=== PATIENT | male | born 1975 | race Caucasian/White ===

== ENCOUNTER 2016-09-05 14:56 | Emergency (ER) | payer BC ==
--- NOTE | 2016-09-05 16:04 | ER Document Report ---
ED Medical Screen (RME) - General Stated Complaint: ABDOMINAL PAIN,VOMITING Time seen by provider: 16:02 Mode of Arrival: Ambulatory Information source: Patient Notes: 41-year-old male presents to ED for possible food poisoning with abdominal pain generalized. Denies any nausea vomiting or diarrhea. I have greeted and performed a rapid initial assessment of this patient. A comprehensive ED assessment and evaluation of the patient, analysis of test results and completion of medical decision making process will be conducted by an additional ED providers. Physical Exam - Vital signs Vitals: Temp Pulse Resp BP Pulse Ox 98 F 96 18 147/88 H 99 09/05/16 15:58 09/05/16 15:58 09/05/16 15:58 09/05/16 15:58 09/05/16 15:58 Course - Vital Signs Vital signs: Temp Pulse Resp BP Pulse Ox 98 F 96 18 147/88 H 99 09/05/16 15:58 09/05/16 15:58 09/05/16 15:58 09/05/16 15:58 09/05/16 15:58
[2016-09-05 16:37] LABS: ABSOLUTE BASOPHILS # (AUTO) 0.1 10^3/uL (0.0-0.2); ABSOLUTE EOSINOPHILS # (AUTO) 0.3 10^3/uL (0.0-0.6); ABSOLUTE LYMPHOCYTES (AUTO) 1.8 10^3/uL (0.5-4.7); ABSOLUTE MONOCYTES (AUTO) 0.4 10^3/uL (0.1-1.4); ABSOLUTE NEUT (AUTO) 4.6 10^3/uL (1.7-8.2); BASOPHILS % (AUTO) 1.3 % (0-2); EOSINOPHILS % (AUTO) 4.7 % (0-6); HEMATOCRIT 42.9 % (37.9-51.0); HEMOGLOBIN 14.8 g/dL (13.5-17.0); HGB HCT DIFFERENCE 1.5; LYMPHOCYTES % (AUTO) 24.5 % (13-45); MEAN CORPUSCULAR HEMOGLOBIN 29.7 pg (27.0-33.4); MEAN CORPUSCULAR HGB CONC 34.6 g/dL (32.0-36.0); MEAN CORPUSCULAR VOLUME 86 fl (80-97); MONOCYTES % (AUTO) 5.7 % (3-13); RED CELL DISTRIBUTION WIDTH 13.4 % (11.5-14.0); SEGMENTED NEUTROPHILS % (AUTO) 63.8 % (42-78); WHITE BLOOD COUNT 7.2 10^3/uL (4.0-10.5)
[2016-09-05 16:42] LABS: APPEARANCE,URINE SLIGHTLY-CLOUDY; BILIRUBIN,URINE NEGATIVE (NEGATIVE); GLUCOSE, URINE NEGATIVE (NEGATIVE); KETONES,URINE NEGATIVE (NEGATIVE); LEUKOCYTE ESTERASE,URINE SMALL (NEGATIVE); NITRITE,URINE NEGATIVE (NEGATIVE); PROTEIN,URINE NEGATIVE (NEGATIVE); URINE SPECIFIC GRAVITY 1.017; UROBILINOGEN,URINE NEGATIVE mg/dL (<2.0)
[2016-09-05 16:55] LABS: ALANINE AMINOTRANSFERASE 63 U/L (21-72); ALBUMIN 4.3 g/dL (3.5-5.0); ALKALINE PHOSPHATASE 103 U/L (38-126); ANION GAP 14 (5-19); ASPARTATE AMINO TRANSFERASE 31 U/L (17-59); BILIRUBIN,DIRECT 0.3 mg/dL (0.0-0.4); BILIRUBIN,TOTAL 0.5 mg/dL (0.2-1.3); BLOOD UREA NITROGEN 14 mg/dL (7-20); CALCIUM 9.3 mg/dL (8.4-10.2); CARBON DIOXIDE 25 mmol/L (22-30); CHLORIDE 104 mmol/L (98-107); CREATININE RESULT 0.93 mg/dL (0.52-1.25); GLUCOSE 144 mg/dL (75-110); LIPASE 45.2 U/L (23-300); POTASSIUM 3.6 mmol/L (3.6-5.0)
[2016-09-05] MEDS ORDERED: CIPROFLOXACIN HCL 500 MG TABLET PO ONE (20:39)
--- NOTE | 2016-09-05 20:43 | ER Document Report ---
ED GI/ - General Chief Complaint: Abdominal Pain Stated Complaint: ABDOMINAL PAIN,VOMITING Mode of Arrival: Ambulatory Notes: Patient is a 41-year-old male that comes emergency department for chief complaint of abdominal cramping, a few episodes of loose stools, and intermittent waves of nausea. Symptoms started last night after dinner. Patient denies any vomiting, fever, denies any current abdominal pain, states he has had no blood in his stools. Patient reports past medical history of kidney stones years ago, denies any flank pain, states this does not feel like kidney stone. He denies any dysuria or urinary symptoms. He denies any abdominal surgeries. TRAVEL OUTSIDE OF THE [place] IN LAST 30 DAYS: No - Related Data Allergies/Adverse Reactions: erythromycin base Allergy (Verified 09/05/16 16:02) Past Medical History - General Information source: Patient - Social History Smoking Status: Never Smoker Chew tobacco use (# tins/day): No Frequency of alcohol use: None Drug Abuse: None Lives with: Family Family History: Reviewed & Not Pertinent Patient has suicidal ideation: No Patient has homicidal ideation: No Renal/ Medical History: Reports: Hx Kidney Stones. Denies: Hx Peritoneal Dialysis Surgical Hx: Negative - Immunizations Hx Diphtheria, Pertussis, Tetanus Vaccination: Yes Review of Systems - Review of Systems Constitutional: No symptoms reported EENT: No symptoms reported Cardiovascular: No symptoms reported Respiratory: No symptoms reported Gastrointestinal: See HPI Genitourinary: No symptoms reported Male Genitourinary: No symptoms reported Musculoskeletal: No symptoms reported Skin: No symptoms reported Hematologic/Lymphatic: No symptoms reported Neurological/Psychological: No symptoms reported Physical Exam - Vital signs Vitals: Temp Pulse Resp BP Pulse Ox 98 F 96 18 147/88 H 99 09/05/16 15:58 09/05/16 15:58 09/05/16 15:58 09/05/16 15:58 09/05/16 15:58 Interpretation: Normal - General General appearance: Appears well, Alert In distress: None - Alert and well-appearing - HEENT Head: Normocephalic, Atraumatic Eyes: Normal Conjunctiva: Normal Extraocular movements intact: Yes Eyelashes: Normal Pupils: PERRL Nasal: Normal Mouth/Lips: Normal Mucous membranes: Normal Pharynx: Normal Neck: Normal - Respiratory Respiratory status: No respiratory distress Chest status: Nontender Breath sounds: Normal Chest palpation: Normal - Cardiovascular Rhythm: Regular. No: Tachycardia Heart sounds: Normal auscultation, S1 appreciated, S2 appreciated Murmur: No - Abdominal Inspection: Normal Distension: No distension Bowel sounds: Normal Tenderness: Nontender. No: Tender, Guarding Organomegaly: No organomegaly - Back Back: Normal, Nontender - Extremities General upper extremity: Normal inspection, Nontender, Normal color, Normal ROM , Normal temperature General lower extremity: Normal inspection, Nontender, Normal color, Normal ROM , Normal temperature, Normal weight bearing. No: Ari's sign - Neurological Neuro grossly intact: Yes Cognition: Normal Orientation: AAOx4 [place] Coma Scale Eye Opening: Spontaneous [place] Coma Scale Verbal: Oriented [place] Coma Scale Motor: Obeys Commands [place] Coma Scale Total: 15 Speech: Normal Motor strength normal: LUE, RUE, LLE, RLE Sensory: Normal - Psychological Associated symptoms: Normal affect, Normal mood - Skin Skin Temperature: Warm Skin Moisture: Dry Skin Color: Normal Course - Re-evaluation Re-evalutation: 09/05/16 20:41 Patient states he is unable to give me a stool sample. Belly is soft and benign. Vital signs unremarkable. Patient declines nausea medication, states he feels improved. CBC, chemistry generally unremarkable, urinalysis shows leukocyte esterase and white blood cells with no bacteria or nitrites. Because of diarrhea, leukocytes in the urine, after discussion with patient urine culture will be placed and patient will be placed on Cipro. Discussed primary care follow-up and return precautions. Patient states understanding and agreement. - Vital Signs Vital signs: Temp Pulse Resp BP Pulse Ox 98.1 F 87 15 134/90 H 97 09/05/16 20:56 09/05/16 20:56 09/05/16 20:56 09/05/16 20:56 09/05/16 20:56 - Laboratory Result Diagrams: 09/05/16 16:23 09/05/16 16:23 Laboratory results interpreted by me: 09/05/16 09/05/16 16:23 16:23 Glucose 144 H Ur Leukocyte Esterase SMALL H Discharge - Discharge Clinical Impression: Nausea Abdominal pain Qualifiers: Abdominal location: generalized Qualified Code(s): R10.84 - Generalized abdominal pain Diarrhea Qualifiers: Diarrhea type: unspecified type Qualified Code(s): R19.7 - Diarrhea, unspecified Condition: Stable Disposition: HOME, SELF-CARE Additional Instructions: Your examination and workup indicating most likely a viral source of her symptoms, however your urinalysis is uncertain, take the Cipro antibiotic as directed, drink plenty of fluids, rest. We have a urine culture growing in our lab. Follow-up with primary care. Return to the emergency department for any concerning worsening symptoms including vomiting, fever, severe abdominal pain, etc. Prescriptions: Ciprofloxacin HCl [Cipro 500 mg Tablet] 500 mg PO BID #10 tablet Forms: Return to Work Referrals: CHANDA STOKES MD [Primary Care Provider] - Follow up as needed
[2016-09-06 03:27] VITALS: BP 134/90
== END 2016-09-05 20:56 | disposition home or self-care (01) ==
LOC: ER 14:56
DX: R11.0 Nausea (principal); R10.84 Generalized abdominal pain; R19.7 Diarrhea, unspecified; Z87.442 Personal history of urinary calculi; Z88.3 Allergy status to other anti-infective agents
CPT/HCPCS: 36415; 80053; 81001; 83690; 85025; 99284

== ENCOUNTER 2017-03-06 08:19 | Emergency (ER) | payer BC ==
[2017-03-06] MEDS ORDERED: KETOROLAC TROMETHAMINE INJ/PF 30 MG/1 ML SDV IV ONE (09:15)
--- NOTE | 2017-03-06 09:16 | ER Document Report ---
ED GI/ - General Chief Complaint: Flank Pain Stated Complaint: BACK PAIN Time Seen by Provider: 03/06/17 08:47 Mode of Arrival: Ambulatory Information source: Patient Notes: Patient presents complaining of low back pain that started at 2 AM today. Patient denies any injury. Patient denies any abdominal pain, urinary symptoms , or fever. Patient denies any nausea, vomiting or diarrhea. Patient denies any radiculopathy or paresthesia. Patient does report previous history of kidney stones and is concerned about that today. TRAVEL OUTSIDE OF THE [place] IN LAST 30 DAYS: No - HPI Patient complains to provider of: Other - Low back pain. No: Abdominal pain, Dysuria, Hematuria, Testicular pain Onset: This morning Timing/Duration: Gradual Quality of pain: Achy Pain Level: 1 Location: Other - Low back pain Associated symptoms: denies: Diarrhea, Dysuria, Fever, Loss of appetite, Nausea , Urinary hesitancy, Urinary frequency, Urinary retention, Urinary urgency, Vomiting Exacerbated by: Denies Relieved by: Denies Similar symptoms previously: Yes Recently seen / treated by doctor: No - Related Data Allergies/Adverse Reactions: erythromycin base Allergy (Verified 03/06/17 09:20) Past Medical History - General Information source: Patient - Social History Smoking Status: Never Smoker Frequency of alcohol use: None Drug Abuse: None 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 Denies: Hx Peritoneal Dialysis Malignancy Medical History: Reports Other - Hodgkin's disease Psychiatric Medical History: Reports: Hx Depression Past Surgical History: Reports: Other - Port-A-Cath - Immunizations Hx Diphtheria, Pertussis, Tetanus Vaccination: Yes Review of Systems - Review of Systems Constitutional: No symptoms reported. denies: Fever, Recent illness EENT: No symptoms reported Cardiovascular: No symptoms reported Respiratory: No symptoms reported. denies: Cough, Short of breath Gastrointestinal: No symptoms reported. denies: Abdominal pain, Diarrhea, Nausea, Vomiting Genitourinary: No symptoms reported. denies: Dysuria, Flank pain Male Genitourinary: No symptoms reported Musculoskeletal: Back pain Skin: No symptoms reported Hematologic/Lymphatic: No symptoms reported Neurological/Psychological: No symptoms reported Physical Exam - Vital signs Vitals: Temp Pulse Resp BP Pulse Ox 98.0 F 96 18 132/91 H 98 03/06/17 08:30 03/06/17 08:30 03/06/17 08:30 03/06/17 08:30 03/06/17 08:30 - General General appearance: Appears well, Alert In distress: None - Respiratory Respiratory status: No respiratory distress Chest status: Nontender Breath sounds: Normal. No: Rales, Rhonchi, Stridor, Wheezing Chest palpation: Normal - Cardiovascular Rhythm: Regular Heart sounds: S1 appreciated, S2 appreciated Murmur: No - Abdominal Inspection: Obese Distension: No distension Bowel sounds: Normal Tenderness: Nontender Organomegaly: No organomegaly - Back Back: Tender - Lower lumbar paraspinal tenderness, no midline tenderness. No: Deformity/step-off, CVA tenderness, Vertebra tenderness - Extremities General upper extremity: Normal inspection, Normal ROM General lower extremity: Normal inspection, Normal ROM - Neurological Neuro grossly intact: Yes Cognition: Normal Orientation: AAOx4 [place] Coma Scale Eye Opening: Spontaneous [place] Coma Scale Verbal: Oriented [place] Coma Scale Motor: Obeys Commands C[place] Coma Scale Total: 15 - Psychological Associated symptoms: Normal affect, Normal mood - Skin Skin Temperature: Warm Skin Moisture: Dry Skin Color: Normal Course - Re-evaluation Re-evalutation: 03/06/17 Patient with no abdominal tenderness or flank pain. Patient's pain is bilateral lower lumbar paraspinal tenderness. The patient presents with low back pain without signs of spinal cord compression, cauda equina syndrome, infection, aneurysm, or other serious etiology. The patient is neurologically intact. Given the extremely risk of these diagnoses further testing and evaluation for these possibilities does not appear to be indicated at this time. Patient has been instructed to return if the symptoms worsen or change in any way. - Vital Signs Vital signs: Temp Pulse Resp BP Pulse Ox 98.1 F 98 18 135/95 H 99 03/06/17 11:14 03/06/17 11:14 03/06/17 11:14 03/06/17 11:14 03/06/17 11:14 - Laboratory Result Diagrams: 03/06/17 09:16 03/06/17 09:16 Laboratory results interpreted by me: 03/06/17 03/06/17 08:50 09:16 Glucose 123 H Ur Leukocyte Esterase TRACE H Labs- Entire Visit 03/06/17 03/06/17 03/06/17 08:50 09:16 09:16 WBC 7.4 RBC 5.04 Hgb 15.1 Hct 43.4 MCV 86 MCH 29.9 MCHC 34.8 RDW 13.2 Plt Count 215 Seg Neutrophils % 69.5 Lymphocytes % 21.0 Monocytes % 3.9 Eosinophils % 4.3 Basophils % 1.3 Absolute Neutrophils 5.2 Absolute Lymphocytes 1.6 Absolute Monocytes 0.3 Absolute Eosinophils 0.3 Absolute Basophils 0.1 Sodium 140.9 Potassium 4.1 Chloride 103 Carbon Dioxide 29 Anion Gap 9 BUN 14 Creatinine 0.96 Est GFR ( Amer) > 60 Est GFR (Non-Af Amer) > 60 Glucose 123 H Calcium 9.3 Total Bilirubin 0.5 Direct Bilirubin 0.3 Indirect Bilirubin Not Reportable Neonat Total Bilirubin Not Reportable AST 31 ALT 63 Alkaline Phosphatase 119 Total Protein 7.0 Albumin 4.2 Lipase 60.3 Urine Color YELLOW Urine Appearance CLEAR Urine pH 6.0 Ur Specific [place] 1.016 Urine Protein NEGATIVE Urine Glucose (UA) NEGATIVE Urine Ketones NEGATIVE Urine Blood NEGATIVE Urine Nitrite NEGATIVE Urine Bilirubin NEGATIVE Urine Urobilinogen NEGATIVE Ur Leukocyte Esterase TRACE H Urine WBC (Auto) 8 Urine RBC (Auto) 4 Squamous Epi Cells Auto <1 Urine Mucus (Auto) OCC Urine Ascorbic Acid NEGATIVE Discharge - Discharge Clinical Impression: Low back pain Qualifiers: Chronicity: unspecified Back pain laterality: bilateral Sciatica presence: without sciatica Qualified Code(s): M54.5 - Low back pain Condition: Stable Disposition: HOME, SELF-CARE Instructions: Ciprofloxacin ([facility]), Low Back Pain ([facility]), Oral Narcotic Medication ([facility]), Urinary Tract Infection ([facility]) Additional Instructions: Return immediately for any new or worsening symptoms Followup with your primary care provider, call tomorrow to make a followup appointment urine culture is pending, we will call if you need any different treatment Prescriptions: Ciprofloxacin HCl [Cipro 500 mg Tablet] 500 mg PO BID #14 tablet Oxycodone HCl/Acetaminophen [Percocet 5-325 mg Tablet] 1 - 2 tab PO ASDIR PRN # 15 tablet PRN Reason: Forms: Return to Work Referrals: [facility] [Provider Group] - Follow up tomorrow
[2017-03-06 09:38] LABS: ABSOLUTE BASOPHILS # (AUTO) 0.1 10^3/uL (0.0-0.2); ABSOLUTE EOSINOPHILS # (AUTO) 0.3 10^3/uL (0.0-0.6); ABSOLUTE LYMPHOCYTES (AUTO) 1.6 10^3/uL (0.5-4.7); ABSOLUTE MONOCYTES (AUTO) 0.3 10^3/uL (0.1-1.4); ABSOLUTE NEUT (AUTO) 5.2 10^3/uL (1.7-8.2); BASOPHILS % (AUTO) 1.3 % (0-2); EOSINOPHILS % (AUTO) 4.3 % (0-6); HEMATOCRIT 43.4 % (37.9-51.0); HEMOGLOBIN 15.1 g/dL (13.5-17.0); HGB HCT DIFFERENCE 1.9; MEAN CORPUSCULAR HEMOGLOBIN 29.9 pg (27.0-33.4); MEAN CORPUSCULAR HGB CONC 34.8 g/dL (32.0-36.0); MEAN CORPUSCULAR VOLUME 86 fl (80-97); MONOCYTES % (AUTO) 3.9 % (3-13); RED BLOOD COUNT 5.04 10^6/uL (4.35-5.55); RED CELL DISTRIBUTION WIDTH 13.2 % (11.5-14.0); SEGMENTED NEUTROPHILS % (AUTO) 69.5 % (42-78); WHITE BLOOD COUNT 7.4 10^3/uL (4.0-10.5)
[2017-03-06 10:00] LABS: APPEARANCE,URINE CLEAR; BILIRUBIN,URINE NEGATIVE (NEGATIVE); GLUCOSE, URINE NEGATIVE (NEGATIVE); KETONES,URINE NEGATIVE (NEGATIVE); LEUKOCYTE ESTERASE,URINE TRACE (NEGATIVE); NITRITE,URINE NEGATIVE (NEGATIVE); PROTEIN,URINE NEGATIVE (NEGATIVE); URINE SPECIFIC GRAVITY 1.016; UROBILINOGEN,URINE NEGATIVE mg/dL (<2.0)
[2017-03-06 10:23] LABS: ALANINE AMINOTRANSFERASE 63 U/L (21-72); ALBUMIN 4.2 g/dL (3.5-5.0); ALKALINE PHOSPHATASE 119 U/L (38-126); ANION GAP 9 (5-19); ASPARTATE AMINO TRANSFERASE 31 U/L (17-59); BILIRUBIN,DIRECT 0.3 mg/dL (0.0-0.4); BILIRUBIN,TOTAL 0.5 mg/dL (0.2-1.3); BLOOD UREA NITROGEN 14 mg/dL (7-20); CALCIUM 9.3 mg/dL (8.4-10.2); CARBON DIOXIDE 29 mmol/L (22-30); CHLORIDE 103 mmol/L (98-107); CREATININE RESULT 0.96 mg/dL (0.52-1.25); GLUCOSE 123 mg/dL (75-110); LIPASE 60.3 U/L (23-300); POTASSIUM 4.1 mmol/L (3.6-5.0); SODIUM 140.9 mmol/L (137-145)
[2017-03-06] MEDS ORDERED: CIPROFLOXACIN HCL 500 MG TABLET PO ONE (10:59)
[2017-03-06 11:18] VITALS: BP 135/95
== END 2017-03-06 11:17 | disposition home or self-care (01) ==
LOC: ER 08:19
DX: M54.5 Low back pain (principal); Z87.442 Personal history of urinary calculi; Z88.1 Allergy status to other antibiotic agents
CPT/HCPCS: 99284; 96374; 36415; 87086; 83690; 85025; 80053; 81001; J1885

== ENCOUNTER 2017-04-05 06:22 | Emergency (ER) | payer BC ==
--- NOTE | 2017-04-05 07:08 | ER Document Report ---
ED General - General Chief Complaint: Flank Pain Stated Complaint: PELVIC PAIN Time Seen by Provider: 04/05/17 06:40 TRAVEL OUTSIDE OF THE [place] IN LAST 30 DAYS: No - HPI Patient complains to provider of: flank pain Notes: Patient coming in for left-sided flank pain ongoing for the last 4824 hours. Patient states slight nausea. Patient states difficulty in urinating however no direct dysuria. Patient states recently has prostate check by his PCP no enlargement. Patient denies any other past medical history. Patient sitting comfortably reading is [employer]. Patient is concerned that he may have urinary tract infection states he does have a history of urinary tract infections in the past. Patient states he is currently not sexually active. Denies any fevers chills vomiting diarrhea - Related Data Allergies/Adverse Reactions: erythromycin base Allergy (Verified 03/06/17 09:20) Home Medications: Current Home Medications Buspirone HCl [Buspar 30 mg Tablet] 30 mg PO DAILY 04/05/17 [History] Iron 1 tab PO DAILY 04/05/17 [History] Levothyroxine Sodium [Synthroid] 137 mcg PO DAILY 04/05/17 [History] Paroxetine HCl [Paxil 20 mg Tablet] 20 mg PO DAILY 04/05/17 [History] Past Medical History - Social History Smoking Status: Never Smoker Chew tobacco use (# tins/day): No Frequency of alcohol use: None Drug Abuse: None Family History: Reviewed & Not Pertinent Patient has suicidal ideation: No Patient has homicidal ideation: No Endocrine Medical History: Reports: Hx Hypothyroidism Renal/ Medical History: Reports: Hx Kidney Stones. Denies: Hx Peritoneal Dialysis Psychiatric Medical History: Reports: Hx Depression Past Surgical History: Reports: Hx Vascular Surgery - port a cath, Other - Port- A-Cath - Immunizations Hx Diphtheria, Pertussis, Tetanus Vaccination: Yes Review of Systems - Review of Systems Constitutional: No symptoms reported EENT: No symptoms reported Cardiovascular: No symptoms reported Respiratory: No symptoms reported Gastrointestinal: No symptoms reported Genitourinary: Flank pain Male Genitourinary: No symptoms reported Musculoskeletal: No symptoms reported Skin: No symptoms reported Hematologic/Lymphatic: No symptoms reported Neurological/Psychological: No symptoms reported -: Yes All other systems reviewed and negative Physical Exam - Vital signs Vitals: Temp Pulse Resp BP Pulse Ox 97.6 F 88 16 119/87 H 97 04/05/17 06:27 04/05/17 06:27 04/05/17 06:27 04/05/17 06:27 04/05/17 06:27 Interpretation: Normal - General General appearance: Appears well, Alert - HEENT Head: Normocephalic, Atraumatic Eyes: Normal Pupils: PERRL - Respiratory Respiratory status: No respiratory distress Chest status: Nontender Breath sounds: Normal Chest palpation: Normal - Cardiovascular Rhythm: Regular Heart sounds: Normal auscultation Murmur: No - Abdominal Inspection: Normal Distension: No distension Bowel sounds: Normal Tenderness: Nontender Organomegaly: No organomegaly - Back Back: Normal, CVA tenderness - Slight CVA tenderness on the left - Extremities General upper extremity: Normal inspection, Nontender, Normal color, Normal ROM , Normal temperature General lower extremity: Normal inspection, Nontender, Normal color, Normal ROM , Normal temperature, Normal weight bearing. No: Ari's sign - Neurological Neuro grossly intact: Yes Cognition: Normal Orientation: AAOx4 [place] Coma Scale Eye Opening: Spontaneous [place] Coma Scale Verbal: Oriented [place] Coma Scale Motor: Obeys Commands [place] Coma Scale Total: 15 Speech: Normal Motor strength normal: LUE, RUE, LLE, RLE Sensory: Normal - Psychological Associated symptoms: Normal affect, Normal mood - Skin Skin Temperature: Warm Skin Moisture: Dry Skin Color: Normal Course - Re-evaluation Re-evalutation: 04/05/17 08:25 Urinalysis does not show any signs of infection does show hematuria are consistent with possible passage of a kidney stone. Discussed this possible etiology with the patient did offer CT scan however at this time I explained the patient would not change treatment options. Patient agrees declined CT patient will be given Flomax oxycodone for pain control Zofran educated about use Tylenol Motrin for pain control as well recommend follow-up with his PCP in 1 week. Patient states understanding. - Vital Signs Vital signs: Temp Pulse Resp BP Pulse Ox 97.6 F 88 16 119/87 H 97 04/05/17 06:27 04/05/17 06:27 04/05/17 06:27 04/05/17 06:27 04/05/17 06:27 - Laboratory Laboratory results interpreted by me: 04/05/17 07:07 Urine Protein 30 H Urine Blood LARGE H Ur Leukocyte Esterase TRACE H Discharge - Discharge Clinical Impression: Flank pain, Hematuria Instructions: Flank Pain ([facility]), Kidney Stone ([facility]), Hematuria ([facility]), Oral Narcotic Medication ([facility]) Additional Instructions: Your examination today and urinalysis is consistent with more likely a kidney stone. We will treat your kidney stone pain control and nausea control. He may take Flomax as directed. You do not need Flomax to passed a kidney stone. Please return immediately if you develop a fever. Follow-up with your primary care physician in 1 week. You can also take Tylenol and Motrin for your pain control. Prescriptions: Ondansetron HCl [Zofran 4 mg Tablet] 1 - 2 tab PO Q4H PRN #30 tablet PRN Reason: Oxycodone HCl 5 mg PO Q6 #30 tablet Tamsulosin HCl [Flomax 0.4 mg Cap.sr] 0.4 mg PO DAILY #7 cap.sr.24h Referrals: CHANDA STOKES MD [Primary Care Provider] - Follow up in 1 week
[2017-04-05 07:50] LABS: APPEARANCE,URINE SLIGHTLY-CLOUDY; BILIRUBIN,URINE NEGATIVE (NEGATIVE); GLUCOSE, URINE NEGATIVE (NEGATIVE); KETONES,URINE NEGATIVE (NEGATIVE); LEUKOCYTE ESTERASE,URINE TRACE (NEGATIVE); NITRITE,URINE NEGATIVE (NEGATIVE); PROTEIN,URINE 30 mg/dL (NEGATIVE); URINE SPECIFIC GRAVITY 1.016; UROBILINOGEN,URINE NEGATIVE mg/dL (<2.0)
[2017-04-05] MEDS ORDERED: ONDANSETRON ODT 4 MG TAB (6 TAB/ER DISP) PO PRN (08:28)
[2017-04-05] MEDS ORDERED: TAMSULOSIN HCL 0.4 MG CAP.SR.24H PO ONE (08:28)
[2017-04-05 09:05] VITALS: BP 141/91
== END 2017-04-05 09:05 | disposition home or self-care (01) ==
LOC: ER 06:22
DX: R31.9 Hematuria, unspecified (principal); R10.9 Unspecified abdominal pain; R10.2 Pelvic and perineal pain; R11.0 Nausea; Z79.899 Other long term (current) drug therapy
CPT/HCPCS: 81001; 99284

== ENCOUNTER 2017-10-26 07:27 | Emergency (ER) | payer BC ==
[2017-10-26 07:31] VITALS: BP 146/92
--- NOTE | 2017-10-26 08:00 | ER Document Report ---
ED General - General Chief Complaint: Fever Stated Complaint: FEVER Time Seen by Provider: 10/26/17 07:37 Mode of Arrival: Ambulatory Information source: Patient Notes: 42-year-old male presents with complaints of mild body aches chills sweats. Patient was concerned he was having fever. 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 IN LAST 30 DAYS: No - HPI Onset: Just prior to arrival Onset/Duration: Sudden Quality of pain: Achy Severity: Mild Pain Level: Denies Associated symptoms: Body/muscle aches, Chills, Sweating Exacerbated by: Denies Relieved by: Denies Similar symptoms previously: No Recently seen / treated by doctor: No - Related Data Allergies/Adverse Reactions: erythromycin base Allergy (Verified 10/26/17 07:34) Past Medical History - Social History Smoking Status: Never Smoker Cigarette use (# per day): No Chew tobacco use (# tins/day): No Smoking Education Provided: No Frequency of alcohol use: None Drug Abuse: None Family History: Reviewed & Not Pertinent Patient has suicidal ideation: No Patient has homicidal ideation: No Endocrine Medical History: Reports: Hx Hypothyroidism Renal/ Medical History: Reports: Hx Kidney Stones. Denies: Hx Peritoneal Dialysis Psychiatric Medical History: Reports: Hx Depression Past Surgical History: Reports: Hx Tonsillectomy, Hx Vascular Surgery - port a cath, Other - Port-A-Cath - Immunizations Hx Diphtheria, Pertussis, Tetanus Vaccination: Yes Review of Systems - Review of Systems Notes: REVIEW OF SYSTEMS: CONSTITUTIONAL : admits to chills ,sweating EENT: Denies eye, ear, throat, or mouth pain or symptoms. Denies nasal or sinus congestion or discharge. Denies throat, tongue, or mouth swelling or difficulty swallowing. CARDIOVASCULAR: Denies chest pain. Denies palpitations or racing or irregular heart beat. Denies ankle edema. RESPIRATORY: Denies cough, cold, or chest congestion. Denies shortness of breath, difficulty breathing, or wheezing. GASTROINTESTINAL: Denies abdominal pain or distention. Denies nausea, vomiting , or diarrhea. Denies blood in vomitus, stools, or per rectum. Denies black, tarry stools. Denies constipation. GENITOURINARY: Denies difficulty urinating, painful urination, burning, frequency, blood in urine, or discharge. MUSCULOSKELETAL: Denies back or neck pain or stiffness. Denies joint pain or swelling. SKIN: Denies rash, lesions or sores. HEMATOLOGIC : Denies easy bruising or bleeding. LYMPHATIC: Denies swollen, enlarged glands. NEUROLOGICAL: Denies confusion or altered mental status. Denies passing out or loss of consciousness. Denies dizziness or lightheadedness. Denies headache. Denies weakness or paralysis or loss of use of either side. Denies problems with gait or speech. Denies sensory loss, numbness, or tingling. Denies seizures. PSYCHIATRIC: Denies anxiety or stress. Denies depression, suicidal ideation, or homicidal ideation. ALL OTHER SYSTEMS REVIEWED AND NEGATIVE. Dictation was performed using [employer] voice recognition software PHYSICAL EXAMINATION: GENERAL: Well-appearing, well-nourished and in no acute distress. HEAD: Atraumatic, normocephalic. EYES: Pupils equal round and reactive to light, extraocular movements intact, sclera anicteric, conjunctiva are normal. ENT: Nares patent, oropharynx clear without exudates. Moist mucous membranes. NECK: Normal range of motion, supple without lymphadenopathy LUNGS: Breath sounds clear to auscultation bilaterally and equal. No wheezes rales or rhonchi. HEART: Regular rate and rhythm without murmurs ABDOMEN: Soft, nontender, nondistended abdomen. No guarding, no rebound. No masses appreciated. Musculoskeletal: Normal range of motion, no pitting or edema. No cyanosis. NEUROLOGICAL: Cranial nerves grossly intact. Normal speech, normal gait. Normal sensory, motor exams PSYCH: Normal mood, normal affect. SKIN: Warm, Dry, normal turgor, no rashes or lesions noted. Physical Exam - Vital signs Vitals: Temp Pulse Resp BP Pulse Ox 98.5 F 94 18 146/92 H 98 10/26/17 07:30 10/26/17 07:30 10/26/17 07:30 10/26/17 07:30 10/26/17 07:30 Course - Re-evaluation Re-evalutation: 10/26/17 07:59 Patient's examination is completely benign, he looks well is in no distress, patient may have been exposed to something well he works at [employer], however at this time there is no signs of any life-threatening issues his vital signs are stable he is afebrile looks well After performing a Medical Screening Examination, I estimate there is LOW risk for ACUTE CORONARY SYNDROME, PULMONARY EMBOLI, RESPIRATORY FAILURE, SEPSIS OR MENINGITIS, thus I consider the discharge disposition reasonable. I have reevaluated this patient multiple times and no significant life threatening changes are noted. The patient and I have discussed the diagnosis and risks, and we agree with discharging home with close follow-up. We also discussed returning to the Emergency Department immediately if new or worsening symptoms occur. We have discussed the symptoms which are most concerning (e.g., changing or worsening pain, trouble swallowing or breathing, neck stiffness, fever) that necessitate immediate return. - Vital Signs Vital signs: Temp Pulse Resp BP Pulse Ox 98.5 F 94 18 146/92 H 98 10/26/17 07:30 10/26/17 07:30 10/26/17 07:30 10/26/17 07:30 10/26/17 07:30 Discharge - Discharge Clinical Impression: Night sweats, Chills (without fever) Condition: Stable Disposition: HOME, SELF-CARE Instructions: Fever ([facility]) Forms: Return to Work Referrals: CHANDA STOKES MD [Primary Care Provider] - Follow up tomorrow
== END 2017-10-26 08:05 | disposition home or self-care (01) ==
LOC: ER 07:27
DX: R61 Generalized hyperhidrosis (principal); R68.83 Chills (without fever); M79.1 Myalgia; E03.9 Hypothyroidism, unspecified; Z87.442 Personal history of urinary calculi; Z88.3 Allergy status to other anti-infective agents
CPT/HCPCS: 99283

== ENCOUNTER 2018-10-17 00:16 | Emergency (ER) | payer BC ==
[2018-10-17] MEDS ORDERED: ASPIRIN 325 MG TABLET PO ONE (06:14)
--- NOTE | 2018-10-17 06:14 | ER Document Report ---
ED General - General Chief Complaint: Numbness of Arm Stated Complaint: LEFT SIDED NUMBNESS,DIFFICULTY BREATHING Time Seen by Provider: 10/17/18 06:08 Primary Care Provider: CLIFTON VARMA MD [NO LOCAL MD] - Follow up in 3-5 days Notes: Patient is a 43-year-old male presents with complaint of intermittent numbness into his left arm left leg. He says this has been intermittent for just over a year. He says in the last few days has become more frequent. He went to [facility] 2 days ago and was evaluated. He said they did a full cardiac work-up on him because at that time he was also found with a short of breath. His work- up there was negative including blood work and EKG and x-rays. Symptoms continue to be intermittent therefore he came to the ER here today. He says currently his symptoms have really resolved and is not having at this time. He denies ever having any weakness in his arm or leg. He denies ever having slurred speech or difficulty talking or walking. No other reported neurologic deficits. TRAVEL OUTSIDE OF THE [place] IN LAST 30 DAYS: No - Related Data Allergies/Adverse Reactions: erythromycin base Allergy (Verified 10/26/17 07:34) Past Medical History - Social History Smoking Status: Unknown if Ever Smoked Frequency of alcohol use: None Drug Abuse: None Family History: Reviewed & Not Pertinent Endocrine Medical History: Reports: Hx Hypothyroidism Renal/ Medical History: Reports: Hx Kidney Stones. Denies: Hx Peritoneal Dialysis Psychiatric Medical History: Reports: Hx Depression Past Surgical History: Reports: Hx Tonsillectomy, Hx Vascular Surgery - port a cath, Other - Port-A-Cath - Immunizations Hx Diphtheria, Pertussis, Tetanus Vaccination: Yes Review of Systems - Review of Systems Notes: My Normal Review Basic REVIEW OF SYSTEMS: CONSTITUTIONAL : Denies fever, chills, or sweats. Denies recent illness. EENT: Denies eye, ear, throat, or mouth pain or symptoms. Denies nasal or sinus congestion. CARDIOVASCULAR: Denies chest pain. RESPIRATORY: Some mild shortness of breath 2 days ago which has since resolved. GASTROINTESTINAL: Denies abdominal pain. Denies nausea, vomiting, or diarrhea. MUSCULOSKELETAL: Denies neck or back pain or joint pain or swelling. SKIN: Denies rash or skin lesions. HEMATOLOGIC : Denies easy bruising or bleeding. NEUROLOGICAL: Denies altered mental status or loss of consciousness. Denies headache. Denies weakness or paralysis or loss of use of either side. Denies problems with gait or speech. Numbness of left arm and left leg ALL OTHER SYSTEMS REVIEWED AND NEGATIVE. Physical Exam - Vital signs Vitals: Temp Pulse Resp BP Pulse Ox 98.1 F 81 20 132/83 H 97 10/17/18 00:54 10/17/18 00:54 10/17/18 00:54 10/17/18 00:54 10/17/18 00:54 - Notes Notes: General Appearance: Well nourished, alert, cooperative, no acute distress, no obvious discomfort. Well-appearing. Vitals: reviewed, See vital signs table. Head: no swelling or tenderness to the head Eyes: PERRL, EOMI, Conjuctiva clear Mouth: No decreasd moisture Throat: No tonsillar inflammation, No airway obstruction, No lymphadenopathy Neck: Supple, no neck tenderness, No thyromegaly Lungs: No wheezing, No rales, No rhonci, No accessory muscle use, good air exchange bilaterally. Heart: Normal rate, Regular rythm, No murmur, no rub Abdomen: Normal BS, soft, No rigidity, No abdominal tenderness, No guarding, no rebound, no abdominal masses, no organomegaly Extremities: strength 5/5 in all extremities, good pulses in all extremities, no swelling or tenderness in the extremities, no edema. Skin: warm, dry, appropriate color, no rash Neuro: speech clear, oriented x 3, normal affect, responds appropriately to questions. Cranial nerves II through XII are intact. Distal sensation intact. Patient moves all extremities without difficulty. Normal Romberg. Normal gait. Course - Re-evaluation Re-evalutation: 10/17/18 06:[address] scan just showed evidence of an old right basal ganglia infarct. Patient does mention that his symptoms have been intermittent for a year but became more frequent here recently. I told him that it still possible that this old infarct could be causing the intermittent numbness in his arm or leg however it be rare for him to have a intermittent in nature numbness such as this. He denies any speech issues. He denies any weakness into his legs. No weakness into his arms. He actually is not even having the numbness at this time I see her in the ER. I informed him because of his history of the previous stroke I recommend him starting aspirin. I said there is still possibility that his symptoms could also be being caused by a pinched nerve and therefore recommend him get an outpatient MRI of his neck. He said he would follow-up with primary care doctor in regards to this. He does not currently have a primary care doctor to 5 him a list of primary care doctors in the area and will also refer him to our local neurologist. I encouraged him to have a low threshold to return to ER if he has weakness in any of his extremities, worsening numbness, or any setting of his symptoms. Patient agrees with plan will be discharged home. Dictation of this chart was performed using voice recognition software; therefore, there may be some unintended grammatical errors. - Vital Signs Vital signs: Temp Pulse Resp BP Pulse Ox 98.1 F 81 20 132/83 H 97 10/17/18 00:54 10/17/18 00:54 10/17/18 00:54 10/17/18 00:54 10/17/18 00:54 Discharge - Discharge Clinical Impression: Numbness and tingling in left arm Condition: Good Disposition: HOME, SELF-CARE Instructions: Family Physicians / Practices Additional Instructions: Your CT scan shows evidence of an old stroke. I do not think this is causing your current symptoms. Anytime you have history of an old stroke he should take 81 mg aspirin every day. Please take the enteric-coated aspirin. You can buy this [id number]. Please follow-up with a neurologist, Dr. Varma, for reevaluation and further work-up. I will also give you a list of local primary care doctors. You should eventually get an MRI of your neck and head as there is a possibility that the numbness and tingling into your left arm and left leg could be related to pinched nerve in your neck. Please have a low threshold to return to ER if you have any weakness in your arm or leg, severe headache, or if you feel that you are worsening in any way. Forms: Return to Work Referrals: CLIFTON VARMA MD [NO LOCAL MD] - Follow up in 3-5 days
[2018-10-17 07:12] VITALS: BP 125/78
--- NOTE | 2018-10-17 08:31 | RADIOLOGY REPORT (SQ) ---
EXAM DESCRIPTION: CT HEAD WITHOUT COMPLETED DATE/TIME: 10/17/2018 6:19 am REASON FOR STUDY: HEADACHE COMPARISON: None. TECHNIQUE: Axial images acquired through the brain without intravenous contrast. Images reviewed wi th bone, brain and subdural windows. Additional sagittal and coronal reconstructions were generated. Images stored on PACS. All CT scanners at this facility use dose modulation, iterative reconstruction, and/or weight based d osing when appropriate to reduce radiation dose to as low as reasonably achievable (ALARA). [facility]: Dose Right [facility]: CareDose [facility]: Dose Right [facility]: Teradose 4D [facility]: [employer] Systems RADIATION DOSE: 1096 mGy cm LIMITATIONS: None. FINDINGS: VENTRICLES: Normal size and contour. CEREBRUM: No masses. No hemorrhage. No midline shift. No evidence for acute infarction. There is a lacunar infarction of the right basal ganglia. CEREBELLUM: No masses. No hemorrhage. No alteration of density. No evidence for acute infarction. EXTRAAXIAL SPACES: No fluid collections. No masses. ORBITS AND GLOBE: No intra- or extraconal masses. Normal contour of globe without masses. CALVARIUM: No fracture. PARANASAL SINUSES: No fluid or mucosal thickening. SOFT TISSUES: No mass or hematoma. OTHER: No other significant finding. IMPRESSION: No acute intracranial pathology. No noncontrast CT findings to explain headache. Lacun ar infarction of the right basal ganglia. EVIDENCE OF ACUTE STROKE: NO. COMMENT: Quality ID # [id number]: Final reports with documentation of one or more dose reduction techniques (e.g., Automated exposure control, adjustment of the mA and/or kV according to patient size, use of iterative reconstruction technique) TECHNICAL DOCUMENTATION: JOB ID: [id number] [employer]- All Rights Reserved Reading location - IP/workstation name: [email or web address]
--- NOTE | 2018-10-17 23:07 | EKG REPORT ---
SEVERITY:- ABNORMAL ECG - SINUS RHYTHM LEFT AXIS DEVIATION LEFT VENTRICULAR HYPERTROPHY : Confirmed by: Lucia Bianchi 17-Oct-2018 23:06:10
== END 2018-10-17 07:19 | disposition home or self-care (01) ==
LOC: ER 00:16
DX: R20.0 Anesthesia of skin (principal); M79.605 Pain in left leg; R06.02 Shortness of breath
CPT/HCPCS: 70450; 93005; 93010; 99284

== ENCOUNTER 2019-07-17 20:46 | Emergency (ER) | payer BC, OTHER ==
--- NOTE | 2019-07-17 23:11 | ER Document Report ---
ED Medical Screen (RME) - General Chief Complaint: Diarrhea Stated Complaint: DIARRHEA,HEADACHE Time Seen by Provider: 07/17/19 22:52 Notes: Patient is a 44-year-old male with a history of CVA, hypothyroidism who presents the emergency department with a chief complaint of diarrhea. Patient reports he has had 2 days of diarrhea and estimates having about 8-9 stools. He reports this is watery in nature. Patient denies vomiting. Patient denies blood in his stool. Patient denies recent out of country travel or sick contacts. Patient reports he is also had increased anxiety over the past few days. Patient does take buspirone as well as Paxil. Patient reports he did take his medication tonight which did seem to help with his discomfort. Patient states about 3 hours ago he developed some left arm/left leg heaviness some numbness. Patient reports this does happen intermittently since he was diagnosed with a stroke over 1 year ago. Patient reports he does have a neurologist in which he did see last year. Patient reports anytime he has symptoms he becomes concerned. Patient reports a slight headache. Patient does take a baby aspirin daily. Patient denies any other blood thinners. Patient denies fever. TRAVEL OUTSIDE OF THE [place] IN LAST 30 DAYS: No - Related Data Allergies/Adverse Reactions: erythromycin base Allergy (Verified 10/26/17 07:34) Past Medical History Endocrine Medical History: Reports: Hx Hypothyroidism Renal/ Medical History: Reports: Hx Kidney Stones. Denies: Hx Peritoneal Dialysis Psychiatric Medical History: Reports: Hx Depression Past Surgical History: Reports: Hx Tonsillectomy, Hx Vascular Surgery - port a cath, Other - Port-A-Cath - Immunizations Hx Diphtheria, Pertussis, Tetanus Vaccination: Yes Physical Exam - Vital signs Vitals: Temp Pulse Resp BP Pulse Ox 97.5 F 81 18 129/81 H 100 07/17/19 20:54 07/17/19 20:54 07/17/19 20:54 07/17/19 20:54 07/17/19 20:54 Interpretation: Normal - Neurological Neuro grossly intact: Yes Cognition: Normal Orientation: AAOx4 [place] Coma Scale Eye Opening: Spontaneous [place] Coma Scale Verbal: Oriented [place] Coma Scale Motor: Obeys Commands [place] Coma Scale Total: 15 Speech: Normal Cranial nerves: Normal Cerebellar coordination: Normal Motor strength normal: LUE, RUE, LLE, RLE - Normal strength noted in all extremities. 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 Patient once again reiterated that he does have intermittent numbness and tingling from his old stroke. Will obtain a CT of the head to rule out any acute intracranial abnormality as the patient also reports a slight headache. Patient's neurological exam was negative. Will obtain basic labs. Patient is not tachycardic, febrile or hypo-or hyper tensive at this time. Patient denies chest pain or shortness of breath. I have greeted and performed a rapid initial assessment of this patient. A comprehensive ED assessment and evaluation of the patient, analysis of test results and completion of the medical decision making process will be conducted by additional ED providers. - Vital Signs Vital signs: Temp Pulse Resp BP Pulse Ox 97.5 F 81 18 129/81 H 100 07/17/19 20:54 07/17/19 20:54 07/17/19 20:54 07/17/19 20:54 07/17/19 20:54
[2019-07-18] LABS: ABSOLUTE BASOPHILS # (AUTO) 0.1 10^3/uL (0.0-0.2); ABSOLUTE EOSINOPHILS # (AUTO) 0.1 10^3/uL (0.0-0.6); ABSOLUTE LYMPHOCYTES (AUTO) 1.2 10^3/uL (0.5-4.7); ABSOLUTE MONOCYTES (AUTO) 0.3 10^3/uL (0.1-1.4); ABSOLUTE NEUT (AUTO) 4.7 10^3/uL (1.7-8.2); BASOPHILS % (AUTO) 1.4 % (0-2); EOSINOPHILS % (AUTO) 1.7 % (0-6); HEMATOCRIT 46.2 % (37.9-51.0); HEMOGLOBIN 16.1 g/dL (13.5-17.0); LYMPHOCYTES % (AUTO) 18.7 % (13-45); MEAN CORPUSCULAR HEMOGLOBIN 29.6 pg (27.0-33.4); MEAN CORPUSCULAR HGB CONC 34.9 g/dL (32.0-36.0); MEAN CORPUSCULAR VOLUME 85 fl (80-97); MONOCYTES % (AUTO) 4.5 % (3-13); PLATELET COUNT 236 10^3/uL (150-450); RED BLOOD COUNT 5.45 10^6/uL (4.35-5.55); RED CELL DISTRIBUTION WIDTH 12.7 % (11.5-14.0); SEGMENTED NEUTROPHILS % (AUTO) 73.7 % (42-78); TOTAL CELLS COUNTED % (AUTO) 100 %; WHITE BLOOD COUNT 6.4 10^3/uL (4.0-10.5)
[2019-07-18 00:16] LABS: ALBUMIN 4.8 g/dL (3.5-5.0); ALKALINE PHOSPHATASE 92 U/L (38-126); ANION GAP 9 (5-19); ASPARTATE AMINO TRANSFERASE 26 U/L (17-59); BILIRUBIN,DIRECT 0.3 mg/dL (0.0-0.4); BILIRUBIN,TOTAL 0.5 mg/dL (0.2-1.3); BLOOD UREA NITROGEN 10 mg/dL (7-20); CALCIUM 9.9 mg/dL (8.4-10.2); CARBON DIOXIDE 30 mmol/L (22-30); CHLORIDE 102 mmol/L (98-107); GLUCOSE 117 mg/dL (75-110); POTASSIUM 4.3 mmol/L (3.6-5.0); TOTAL PROTEIN 8.1 g/dL (6.3-8.2)
--- NOTE | 2019-07-18 00:19 | ER Document Report ---
ED General - General Chief Complaint: Diarrhea Stated Complaint: DIARRHEA,HEADACHE Time Seen by Provider: 07/17/19 22:52 Mode of Arrival: Ambulatory Information source: Patient TRAVEL OUTSIDE OF THE [place] IN LAST 30 DAYS: No - HPI Onset: Other - over the last few days Onset/Duration: Gradual Quality of pain: Achy, Cramping Severity: Mild Pain Level: 1 Associated symptoms: Diarrhea, Weakness, Other - numbness, tingling Exacerbated by: Denies Relieved by: Denies Similar symptoms previously: Yes - patient has had the left sided numbness and tingling and weakness for years Recently seen / treated by doctor: No Notes: 44 year old male with a history of previous stroke (right basal ganglia area), Hypothyroidism, Anxiety, Depression here for 2 days of crampy abdominal pain and diarrhea and several hours of left sided numbness, tingling, and weakness. The patient says his mother has similar GI symptoms. The patient denies fevers, chills, sweats, nausea, vomiting, recent travel outside the [place], ingestion of uncooked foods. The patient has had off and on left sided numbness, tingling, and weakness for years now. The patient says it seems to go several times a week and he just wanted to be checked out for it today while in the ER. The patient has seen a neurologist in the past for this and he has imaging in this EMR which shows he did have a right basal ganglia stroke in the past. It has been thought his old stroke is the cause of his transient left sided symptoms. - Related Data Allergies/Adverse Reactions: erythromycin base Allergy (Verified 10/26/17 07:34) Past Medical History - General Information source: Patient - Social History Smoking Status: Former Smoker Frequency of alcohol use: None Drug Abuse: None Family History: Reviewed & Not Pertinent Patient has suicidal ideation: No Patient has homicidal ideation: No - Past Medical History Cardiac Medical History: Reports: None Pulmonary Medical History: Reports: None EENT Medical History: Reports: None Neurological Medical History: Reports: None, Hx Cerebrovascular Accident Endocrine Medical History: Reports: Hx Hypothyroidism Renal/ Medical History: Reports: Hx Kidney Stones. Denies: Hx Peritoneal Dialysis GI Medical History: Reports: None Psychiatric Medical History: Reports: Hx Depression Past Surgical History: Reports: Hx Tonsillectomy, Hx Vascular Surgery - port a cath, Other - Port-A-Cath - Immunizations Hx Diphtheria, Pertussis, Tetanus Vaccination: Yes Review of Systems - Review of Systems Constitutional: No symptoms reported EENT: No symptoms reported Cardiovascular: No symptoms reported Respiratory: No symptoms reported Gastrointestinal: Diarrhea Genitourinary: No symptoms reported Male Genitourinary: No symptoms reported Musculoskeletal: No symptoms reported Skin: No symptoms reported Hematologic/Lymphatic: No symptoms reported Neurological/Psychological: Weakness - on left side, Numbness, Tingling Physical Exam - Vital signs Vitals: Temp Pulse Resp BP Pulse Ox 97.5 F 81 18 129/81 H 100 07/17/19 20:54 07/17/19 20:54 07/17/19 20:54 07/17/19 20:54 07/17/19 20:54 - Notes Notes: GENERAL: Well-appearing, well-nourished and in no acute distress. HEAD: Atraumatic, normocephalic. EYES: Pupils equal round and reactive to light, extraocular movements intact, sclera anicteric, conjunctiva are normal. ENT: TMs normal, nares patent, oropharynx clear without exudates. Moist mucous membranes. NECK: Normal range of motion, supple without lymphadenopathy or JVD. LUNGS: Breath sounds clear to auscultation bilaterally and equal. No wheezes rales or rhonchi. HEART: Regular rate and rhythm without murmurs, rubs or gallops. ABDOMEN: Soft, nontender, normoactive bowel sounds. No guarding, no rebound. No masses appreciated. EXTREMITIES: Normal range of motion, no pitting or edema. No clubbing or cyanosis. NEUROLOGICAL: Cranial nerves II through XII grossly intact. Normal speech, normal gait. Normal strength and sensation throughout. Specifically no left sided weakness on exam. PSYCH: Normal mood, normal affect. SKIN: Warm, Dry, normal turgor, no rashes or lesions noted. Course - Re-evaluation Re-evalutation: 07/18/19 00:39 The patient is here for diarrhea with abdominal cramps as well as some left sided weakness with numbness and tingling. It sounds like the patient likely has a viral GI illness given his mother had the same diarrhea and abdominal cramps recently. Patient has been having the left sided numbness and tingling and weakness off and on for years. He has been seen here in this ER for it back in October 2018. The patient is on a baby aspirin and his blood pressure and cholesterol has been well controlled. The patient says he remembers having had carotid dopplers but he doesnt think he had an echo. Patient has a neurologist due to his known right sided basal ganglia stroke which was again seen today on CT. Patient's labs are unremarkable here in the ER. Patient told to follow up with his PCP and Neurologist. Patient's numbness, tingling, and weakness seems to come and go and has been doing this for years now so no need to readmit. - Vital Signs Vital signs: Temp Pulse Resp BP Pulse Ox 97.5 F 81 18 129/81 H 100 07/17/19 20:54 07/17/19 20:54 07/17/19 20:54 07/17/19 20:54 07/17/19 20:54 - Laboratory Result Diagrams: 07/17/19 23:46 07/17/19 23:46 Laboratory results interpreted by me: 07/17/19 23:46 Glucose 117 H Discharge - Discharge Clinical Impression: Numbness Diarrhea Qualifiers: Diarrhea type: unspecified type Qualified Code(s): R19.7 - Diarrhea, unspecified Condition: Stable Disposition: HOME, SELF-CARE Instructions: Diarrhea, Nonspecific ([facility]) Additional Instructions: Follow up with your Neurologist and with your primary care doctor. Tell your doctors about your off and on left sided numbness, tingling, and weakness. Use over the counter Imodium if your diarrhea continues. Drink plenty of fluids in the days to come.
--- NOTE | 2019-07-18 00:30 | RADIOLOGY REPORT (SQ) ---
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 COMPARISON: None. TECHNIQUE: CT scan of the brain without IV contrast. This exam was performed according to our departmental dose-optimization program, which includes automated exposure control, adjustment of the mA and/or kV according to patient size and/or use of iterative reconstruction technique. FINDINGS: There is an old lacunar infarct in the right basal ganglia. No evidence of acute infarction, intracranial hemorrhage, extra-axial fluid collection, or midline shift. No air-fluid levels are seen in the paranasal sinuses to suggest acute sinusitis. No depressed skull fracture. IMPRESSION: No acute intracranial findings.
[2019-07-18 00:58] VITALS: BP 123/81
--- NOTE | 2019-07-18 09:17 | EKG REPORT ---
SEVERITY:- ABNORMAL ECG - SINUS RHYTHM LEFT AXIS DEVIATION LEFT VENTRICULAR HYPERTROPHY : Confirmed by: Lucia Bianchi 18-Jul-2019 09:16:27
== END 2019-07-18 00:57 | disposition home or self-care (01) ==
LOC: ER 20:46
DX: R20.0 Anesthesia of skin (principal); R19.7 Diarrhea, unspecified; R51 Headache; R53.1 Weakness; R10.9 Unspecified abdominal pain; Z86.73 Personal history of transient ischemic attack (TIA), and cerebral infarction without residual deficits; Z88.1 Allergy status to other antibiotic agents; Z87.891 Personal history of nicotine dependence
CPT/HCPCS: 36415; 70450; 80053; 84443; 85025; 93005; 93010; 99284

== ENCOUNTER 2019-09-01 06:45 | Emergency (ER) | payer OTHER ==
--- NOTE | 2019-09-01 08:50 | ER Document Report ---
ED Hip Pain/Injury - General Chief Complaint: Hip Pain Stated Complaint: RIGHT HIP PAIN Time Seen by Provider: 09/01/19 08:49 Notes: CHIEF COMPLAINT: Low back pain last night HPI: 44-year-old male presenting to the emergency department complaining of low back pain with some radiation of the discomfort into the anterior left thigh that began last night. 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 Denies a specific injury but started noticing discomfort across the lower back last night. Denies numbness or tingling in the legs. Denies incontinence of urine or bowel. Took no medications for his symptoms. Requesting a work note ROS: See HPI - all other systems were reviewed and are otherwise negative Constitutional: no fever GI: no vomiting, no diarrhea, no abdominal pain : no dysuria Integumentary: no rash Allergy: no hives Musculoskeletal: no extremity pain or swelling, positive back pain Neurological: no numbness/tingling, no weakness MEDICATIONS: I agree with the patient medications as charted by the RN. ALLERGIES: I agree with the allergies as charted by the RN. PAST MEDICAL HISTORY/PAST SURGICAL HISTORY: Reviewed and agree as charted by RN. SOCIAL HISTORY: Reviewed and agree as charted by RN. FAMILY HISTORY: No significant familial comorbid conditions directly related to patient complaint EXAM: Reviewed vital signs as charted by RN. CONSTITUTIONAL: Alert and oriented and responds appropriately to questions. Well-appearing; well-nourished, mild distress secondary to pain HEAD: Normocephalic; atraumatic EYES: PERRL; Conjunctivae clear, sclerae non-icteric ENT: normal nose; no rhinorrhea; moist mucous membranes NECK: Supple without meningismus; non-tender; no cervical lymphadenopathy, no masses CARD: RRR; no murmurs, no clicks, no rubs, no gallops; symmetric distal pulses RESP: Normal chest excursion without splinting or tachypnea; breath sounds clear and equal bilaterally; no wheezes, no rhonchi, no rales ABD/GI: Normal bowel sounds; non-distended; soft, non-tender, no rebound, no guarding; no palpable organomegaly or masses. BACK: The back appears normal and is non-tender to palpation directly over the lumbar spine. Very mild right lateral lumbar muscular tenderness on palpation into the upper right gluteal region , there is no CVA tenderness EXT: Normal ROM in all joints; non-tender to palpation; no cyanosis, no effusions, no edema SKIN: Normal color for age and race; warm; dry; good turgor; no acute lesions noted NEURO: Moves all extremities equally; Motor and sensory function intact. Strength equal 5/5 bilateral lower extremities. Sensation intact and equal bilateral lower extremities. Straight leg raise is negative. No saddle anesthesia on exam. DTRs 2+ intact and equal bilateral lower extremities. PSYCH: The patient's mood and manner are appropriate. Grooming and personal hygiene are appropriate. MDM: 44-year-old male with likely mild strain of the lumbar back. No indication for imaging at this time. Neurologically intact. Will place patient on an anti-inflammatory and a muscle relaxer refer to orthopedics follow-up TRAVEL OUTSIDE OF THE [place] IN LAST 30 DAYS: No - Related Data Allergies/Adverse Reactions: erythromycin base Allergy (Verified 10/26/17 07:34) Home Medications: synthroid Past Medical History - Social History Smoking Status: Never Smoker Family History: Reviewed & Not Pertinent Patient has suicidal ideation: No Patient has homicidal ideation: No Neurological Medical History: Reports: Hx Cerebrovascular Accident Endocrine Medical History: Reports: Hx Hypothyroidism Renal/ Medical History: Reports: Hx Kidney Stones. Denies: Hx Peritoneal Dialysis Psychiatric Medical History: Reports: Hx Depression Past Surgical History: Reports: Hx Tonsillectomy, Hx Vascular Surgery - port a cath, Other - Port-A-Cath - Immunizations Hx Diphtheria, Pertussis, Tetanus Vaccination: Yes Physical Exam - Vital signs Vitals: Temp Pulse Resp BP Pulse Ox 97.5 F 82 16 121/77 99 09/01/19 06:55 09/01/19 06:55 09/01/19 06:55 09/01/19 06:55 09/01/19 06:55 Course - Vital Signs Vital signs: Temp Pulse Resp BP Pulse Ox 97.5 F 82 16 121/77 99 09/01/19 06:55 09/01/19 06:55 09/01/19 06:55 09/01/19 06:55 09/01/19 06:55 Discharge - Discharge Clinical Impression: Low back strain Qualifiers: Encounter type: initial encounter Qualified Code(s): S39.012A - Strain of muscle, fascia and tendon of lower back, initial encounter Condition: Stable Disposition: HOME, SELF-CARE Instructions: Low Back Pain ([facility]) Additional Instructions: 1. Warm heat to the lower back twice daily 2. no heavy lifting for 2-3 days 3. medications as prescribed, no driving on muscle relaxers 4. follow up with orthopedics for further evaluation and treatment as needed for any continuing pain or problems, call for appt. 5. return to the ER for any onset of incontinence of urine, fever > 101 or worsening condition Prescriptions: Cyclobenzaprine HCl [Flexeril 10 mg Tablet] 10 mg PO TIDP PRN #15 tab PRN Reason: Naproxen 500 mg PO BID PRN #14 tablet PRN Reason: Referrals: ASHA VAUGHAN JR, DO [ACTIVE PROVISIONAL STAFF] - Follow up as needed
[2019-09-01 09:37] VITALS: BP 117/71
== END 2019-09-01 09:39 | disposition home or self-care (01) ==
LOC: ER 06:45
DX: S39.012A Strain of muscle, fascia and tendon of lower back, initial encounter (principal); M79.652 Pain in left thigh; X58.XXXA Exposure to other specified factors, initial encounter; E03.9 Hypothyroidism, unspecified; Z86.73 Personal history of transient ischemic attack (TIA), and cerebral infarction without residual deficits; Z87.442 Personal history of urinary calculi; Z88.3 Allergy status to other anti-infective agents
CPT/HCPCS: 99283

== ENCOUNTER 2019-09-28 15:11 | Emergency (ER) | payer OTHER ==
--- NOTE | 2019-09-28 15:38 | ER Document Report ---
HPI - HPI Patient complains to provider of: covid 19 exposure, shortness of breath Onset: Other Onset/Duration: Sudden Context: This 44-year-old male with history anxiety and TIA presents emergency department with reports of cold with 19 exposure. 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 He reports he woke up this morning feeling a little short of breath. He reports he is able to walk from the bedroom to the bathroom, and walk around the house without any problems. Patient also reports he has history of anxiety and wonders if it is his anxiety kicking in. He denies fever vomiting diarrhea. Reports he is eating drinking without problems. Denies chest pain. Denies shortness of breath at this time. Speaking in a clear voice respiratory rate even unlabored no retractions. Associated Symptoms: Shortness of breath. 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 Denies: Hx Peritoneal Dialysis Psychiatric Medical History: Reports: Hx Anxiety, Hx Depression Past Surgical History: Reports: Hx Tonsillectomy, Hx Vascular Surgery - port a cath, Other - Port-A-Cath - Immunizations Hx Diphtheria, Pertussis, Tetanus Vaccination: Yes Vertical Provider Document - CONSTITUTIONAL Agree With Documented VS: Yes Exam Limitations: No Limitations General Appearance: WD/WN, No Apparent Distress Notes: Full physical exam could not be performed due to Covid 19 isolation protocols. Constitutional: nontoxic appearance, no acute distress Eyes: Nonicteric, extraocular movements intact, sclera clear Respiratory: Nonlabored breathing, no use of accessory muscles, no tachypnea, no shortness of breath noted, speaking in a clear voice. Cardiovascular: No JVD Gastrointestinal: Abdominal not distended Musculoskeletal: Moves all extremities well Skin: Normal color Neuro: Awake alert oriented normal speech Psych: Normal mood and affect - INFECTION CONTROL TRAVEL OUTSIDE OF THE [place] IN LAST 30 DAYS: No - HEENT HEENT: Atraumatic. negative: Conjuctival Injection - NECK Neck: Supple - RESPIRATORY Respiratory: No Respiratory Distress - CARDIOVASCULAR Cardiovascular: Tachycardia - GI/ABDOMEN Gastrointestinal: Abdomen Soft, Abdomen Non-Tender - MUSCULOSKELETAL/EXTREMETIES Musculoskeletal/Extremeties: MAEW - NEURO Level of Consciousness: Awake, Alert, Appropriate Course - Re-evaluation Re-evalutation: 09/28/19 15:48 Patient presents with upper respiratory symptoms worrisome for possible Covid 19. Patient does not have emergency worriesome symptoms such as difficulty breathing, chest pain, pressure, confusion or cyanosis. He does report a feeling of shortness of breath but is speaking in clear sentences without distress. He reports he is able to walk around the house without problems. Patient appears suitable for discharge as he is not of an advanced age, does not have any chronic medical conditions such as diabetes, CAD, immune deficiency, chronic lung disease or chronic kidney disease. Patient's vital signs are stable and patient is nontoxic in appearance. Respiratory rate even and unlabored no retractions no wheeze. Good return precautions have been discussed with patient, patient verbalized understanding and is agreeable with discharge plan of care at this time. 09/28/19 16:29 Laboratory 09/28/19 09/28/19 15:25 15:25 Influenza A (Rapid) NEGATIVE Influenza B (Rapid) NEGATIVE Group A Strep Rapid NEGATIVE Patient contacted and instructed on negative flu and strep test. They were instructed COVID-19 testing is still pending and he will be contacted by the health department with results. - Vital Signs Vital signs: 09/28/19 15:38 Heart rate 100 blood pressure 143/73 O2 sat 98% temperature 96.(Patient was drinking a Dr. Pepper) Discharge - Discharge Clinical Impression: Exposure to COVID-19 virus, Shortness of breath Condition: Stable Disposition: HOME, SELF-CARE Additional Instructions: *You have been evaluated at the emergency department RTC for Covidien 19 exposure and shortness of breath *A strep and influenza test are pending. You will be contacted today with your results. If your strep test is negative a throat culture will be initiated. You may be contacted in 3 to 4 days should you need antibiotics *The COVID-19 test is also pending. You will be contacted in 10 to 14 days by the health department with results. In the meantime you must self quarantine for at least 14 days or until you receive a negative cover test. *Monitor your breathing. Return to the emergency department for difficulty breathing, worsening condition, concerns As a person under investigation for Covid 19, the [facility], division of public health advises you to adhere to the following guidance until your test results are reported to you. If your test result is positive, you will receive additional information from your provider and your local health department at that time. Remain at home until you are cleared by the health provider or public health authorities. Keep a log of visitors to your home, notify any visitors to your home of your isolation status. If you plan to move to a new address or leave the county, notify the local health department in your County. Call your doctor or seek care if you have an urgent medical need. Before seeking medical care, call ahead to get instructions from the provider before arriving at the medical office clinic or hospital. Notify them that you are being tested for the virus that causes Covid 19 so that arrangements can be made, as necessary, to prevent transmission to others in the healthcare setting. Next, notify the local health department in your county. If a medical emergency arises and you need to call 911, inform dispatch and the first responders that you are being tested for the virus that causes Covid 19. Next, notify the local health department in your county. Guidance for worsening S/SX: For worsening symptoms, patient has been advised to contact their Primary Care Provider, or go to the nearest Emergency Department. Referrals: LOCALMD,NO [Primary Care Provider] - Follow up as needed
[2019-09-28 16:15] LABS: A TYPE INFLUENZA AG NEGATIVE (NEGATIVE); B INFLUENZA AG NEGATIVE (NEGATIVE)
== END 2019-09-28 16:30 | disposition home or self-care (01) ==
LOC: EDRDC 15:11
DX: R06.02 Shortness of breath (principal); Z20.828 Contact with and (suspected) exposure to other viral communicable diseases; R00.0 Tachycardia, unspecified; Z87.891 Personal history of nicotine dependence
CPT/HCPCS: 87070; 87635; 87804; 87880; 99211

== ENCOUNTER 2020-02-17 20:14 | Emergency (ER) | payer OTHER ==
--- NOTE | 2020-02-17 21:00 | EKG REPORT ---
SEVERITY:- ABNORMAL ECG - SINUS TACHYCARDIA LEFT VENTRICULAR HYPERTROPHY : Confirmed by: Adams Tirado MD 17-Feb-2020 20:59:22
--- NOTE | 2020-02-17 22:07 | ER Document Report ---
ED Medical Screen (RME) - General Chief Complaint: Palpitations Stated Complaint: REPORTS FAST HEART RATE/NUMBNESS IN LEFT ARM Time Seen by Provider: 02/17/20 22:01 Primary Care Provider: KATHRINE PIEDRA [Primary Care Provider] - Follow up as needed Mode of Arrival: Ambulatory Information source: Patient Notes: 45-year-old male presented to ED for complaint of rapid heartbeat. He states is been intermittently all day. He states he had sweating and palpitations. He states he went to the ED and for his neck and they found a thyroid nodule earlier today. He states they told him that he did blood work and they will go and have it in case the doctor they referred to me today. He states he did not tell them what they found on blood work. He is alert oriented respirations regular nonlabored speaking in full sentences. He states his been taking 150 mg of Synthroid for about the last couple weeks and he thinks he is just on too high of a dose and that is why he is having the palpitations. He states he did have a history of a TIA. He states he does not smoke drink or use any illicit drugs. I have greeted and performed a rapid initial assessment of this patient. A comprehensive ED assessment and evaluation of the patient, analysis of test results and completion of medical decision making process will be conducted by an additional ED providers. TRAVEL OUTSIDE OF THE [place] IN LAST 30 DAYS: No - Related Data Allergies/Adverse Reactions: erythromycin base Allergy (Verified 10/26/17 07:34) Past Medical History Neurological Medical History: Reports: Hx Cerebrovascular Accident Endocrine Medical History: Reports: Hx Hypothyroidism Renal/ Medical History: Reports: Hx Kidney Stones. Denies: Hx Peritoneal Dialysis Psychiatric Medical History: Reports: Hx Anxiety, Hx Depression Past Surgical History: Reports: Hx Tonsillectomy, Hx Vascular Surgery - port a cath, Other - Port-A-Cath - Immunizations Hx Diphtheria, Pertussis, Tetanus Vaccination: Yes Physical Exam - Vital signs Vitals: Temp Pulse Resp BP Pulse Ox 98.5 F 102 H 20 129/94 H 98 02/17/20 20:47 02/17/20 20:47 02/17/20 20:47 02/17/20 20:47 02/17/20 20:47 Course - Vital Signs Vital signs: Temp Pulse Resp BP Pulse Ox 98.5 F 102 H 20 129/94 H 98 02/17/20 20:47 02/17/20 20:47 02/17/20 20:47 02/17/20 20:47 02/17/20 20:47 Doctor's Discharge - Discharge Referrals: LOCALMD,NO [Primary Care Provider] - Follow up as needed
[2020-02-17 22:59] LABS: ABSOLUTE BASOPHILS # (AUTO) 0.1 10^3/uL (0.0-0.2); ABSOLUTE EOSINOPHILS # (AUTO) 0.2 10^3/uL (0.0-0.6); ABSOLUTE LYMPHOCYTES (AUTO) 1.9 10^3/uL (0.5-4.7); ABSOLUTE MONOCYTES (AUTO) 0.6 10^3/uL (0.1-1.4); ABSOLUTE NEUT (AUTO) 7.5 10^3/uL (1.7-8.2); BASOPHILS % (AUTO) 1.4 % (0-2); EOSINOPHILS % (AUTO) 1.6 % (0-6); HEMATOCRIT 42.3 % (37.9-51.0); LYMPHOCYTES % (AUTO) 18.1 % (13-45); MEAN CORPUSCULAR HEMOGLOBIN 29.6 pg (27.0-33.4); MEAN CORPUSCULAR HGB CONC 35.4 g/dL (32.0-36.0); MEAN CORPUSCULAR VOLUME 84 fl (80-97); MONOCYTES % (AUTO) 5.7 % (3-13); PLATELET COUNT 267 10^3/uL (150-450); RED BLOOD COUNT 5.07 10^6/uL (4.35-5.55); RED CELL DISTRIBUTION WIDTH 12.9 % (11.5-14.0); SEGMENTED NEUTROPHILS % (AUTO) 73.2 % (42-78); TOTAL CELLS COUNTED % (AUTO) 100 %; WHITE BLOOD COUNT 10.3 10^3/uL (4.0-10.5)
[2020-02-17 23:22] LABS: ALBUMIN 4.6 g/dL (3.5-5.0); ALKALINE PHOSPHATASE 84 U/L (38-126); ANION GAP 8 (5-19); ASPARTATE AMINO TRANSFERASE 23 U/L (17-59); BILIRUBIN,DIRECT 0.3 mg/dL (0.0-0.4); BILIRUBIN,TOTAL 0.5 mg/dL (0.2-1.3); BLOOD UREA NITROGEN 18 mg/dL (7-20); CALCIUM 9.2 mg/dL (8.4-10.2); CARBON DIOXIDE 31 mmol/L (22-30); CHLORIDE 102 mmol/L (98-107); CREATINE KINASE 84 U/L (55-170); GLUCOSE 116 mg/dL (75-110); POTASSIUM 4.3 mmol/L (3.6-5.0); TOTAL PROTEIN 7.6 g/dL (6.3-8.2)
[2020-02-17 23:37] LABS: FREE T3 3.27 pg/mL (2.77-5.27); FREE T4 (FREE THYROXINE) 1.37 ng/dL (0.78-2.19)
[2020-02-17 23:50] LABS: THYROID STIMULATING HORMONE 0.16 uIU/mL (0.47-4.68)
--- NOTE | 2020-02-18 04:21 | ER Document Report ---
ED General - General Chief Complaint: Irregular Pulse Stated Complaint: REPORTS FAST HEART RATE/NUMBNESS IN LEFT ARM Time Seen by Provider: 02/17/20 22:01 Primary Care Provider: KATHRINE PIEDRA [NO SUMANTH MD] - Follow up as needed Mode of Arrival: Ambulatory Information source: Patient Notes: Patient is a 45-year-old male comes emergency room complaining of tachycardia. Patient states that he has been on Synthroid/levothyroxine for a long time. He goes to [facility] and they changed his dosage of the Synthroid from 137 mcg 250. He has been taking it on a daily basis and started getting tachycardic a couple days ago. Patient is here because he states he is try to get an appointment with [facility] to talk about it but they have not been to do anything. He denies any chest pain and no shortness of breath is just weird feeling where his heart is racing some. Denies any cardiac history. Patient does not smoke drink or do drugs. TRAVEL OUTSIDE OF THE [place] IN LAST 30 DAYS: No - Related Data Allergies/Adverse Reactions: erythromycin base Allergy (Verified 10/26/17 07:34) Home Medications: paxil, levothryxine Past Medical History - General Information source: Patient - Social History Smoking Status: Never Smoker Chew tobacco use (# tins/day): No Smoking Education Provided: No Frequency of alcohol use: None Drug Abuse: None Family History: Reviewed & Not Pertinent Neurological Medical History: Reports: Hx Cerebrovascular Accident Endocrine Medical History: Reports: Hx Hypothyroidism Renal/ Medical History: Reports: Hx Kidney Stones. Denies: Hx Peritoneal Dialysis Psychiatric Medical History: Reports: Hx Anxiety, Hx Depression Past Surgical History: Reports: Hx Tonsillectomy, Hx Vascular Surgery - port a cath, Other - Port-A-Cath - Immunizations Hx Diphtheria, Pertussis, Tetanus Vaccination: Yes Review of Systems - Review of Systems Constitutional: No symptoms reported EENT: No symptoms reported Cardiovascular: Palpitations Respiratory: No symptoms reported Gastrointestinal: No symptoms reported Genitourinary: No symptoms reported Male Genitourinary: No symptoms reported Musculoskeletal: No symptoms reported Skin: No symptoms reported Hematologic/Lymphatic: No symptoms reported Neurological/Psychological: No symptoms reported -: Yes All other systems reviewed and negative Physical Exam - Vital signs Vitals: Temp Pulse Resp BP Pulse Ox 98.5 F 102 H 20 129/94 H 98 02/17/20 20:47 02/17/20 20:47 02/17/20 20:47 02/17/20 20:47 02/17/20 20:47 Interpretation: Hypertensive, Tachycardic - Notes Notes: PHYSICAL EXAMINATION: GENERAL: Patient is well-nourished well-developed 45-year-old male no apparent distress on physical exam although does appear somewhat comfortable. He also appears slightly anxious. HEAD: Atraumatic, normocephalic. EYES: Pupils equal round and reactive to light, extraocular movements intact, sclera anicteric, conjunctiva are normal. ENT: Nares patent, oropharynx clear without exudates. Moist mucous membranes. NECK: Normal range of motion, supple without lymphadenopathy LUNGS: Breath sounds clear to auscultation bilaterally and equal. No wheezes rales or rhonchi. HEART tachycardic rate and rhythm without murmurs ABDOMEN: Soft, nontender, nondistended abdomen. No guarding, no rebound. No masses appreciated. Musculoskeletal: Normal range of motion, no pitting or edema. No cyanosis. NEUROLOGICAL: Normal speech, normal gait. Normal sensory, motor exams PSYCH: Normal mood, normal affect. SKIN: Warm, Dry, normal turgor, no rashes or lesions noted. Course - Re-evaluation Re-evalutation: 02/18/20 04:21 Patient's labs came back and his TSH was on the low side. It was 0.16. All other labs were normal and his EKG was just a sinus tachycardia. This point will send patient home put him back down to his 137 mcg of levothyroxine and he can take the labs with him to [facility] for further evaluation. 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 Put it up so you do not get the mixed up. I am writing you for a month supply of the other one h owever I want you to follow-up with [facility] as soon as possible to discuss his they may want to alternate your medications and then retest you again. Should you have any concerns or problems you return to ER for reevaluation. Prescriptions: Levothyroxine Sodium 137 mcg PO DAILY #30 tablet Forms: Return to Work Referrals: DOROTHEA,NO [NO LOCAL MD] - Follow up as needed
[2020-02-18 04:32] VITALS: BP 130/85
== END 2020-02-18 04:39 | disposition home or self-care (01) ==
LOC: ER 20:14
DX: E03.2 Hypothyroidism due to medicaments and other exogenous substances (principal); T50.905A Adverse effect of unspecified drugs, medicaments and biological substances, initial encounter; R00.0 Tachycardia, unspecified; R00.2 Palpitations; F32.9 Major depressive disorder, single episode, unspecified; F41.9 Anxiety disorder, unspecified; Z79.899 Other long term (current) drug therapy; Z88.1 Allergy status to other antibiotic agents
CPT/HCPCS: 36415; 80053; 82550; 84439; 84443; 84481; 84484; 85025; 93005; 93010; 99284

== ENCOUNTER 2020-04-21 05:05 | Emergency (ER) | payer OTHER ==
--- NOTE | 2020-04-21 07:51 | ER Document Report ---
ED Medical Screen (RME) - General Chief Complaint: Breathing Difficulty Stated Complaint: SHORTNESS OF BREATH Time Seen by Provider: 04/21/20 07:46 Primary Care Provider: AMARJIT LESLIE MD [Primary Care Provider] - Follow up as needed TRAVEL OUTSIDE OF THE [place] IN LAST 30 DAYS: No - HPI Notes: Patient is a 45 y/o male who presents with increasing shortness of breath for t he past couple of days. He was recently diagnosed with a thyroid goiter and is scheduled to have surgery on 05/[address] Hernandez to have a thyroidectomy. He states he feels the goiter is pressing on his trachea making it harder to breath. Patient reports cough but denies chest pain, fever, nausea and vomiting. Patient denies any hx of medical problems. - Related Data Allergies/Adverse Reactions: erythromycin base Allergy (Verified 04/21/20 05:20) Home Medications: THYROID. HTN Past Medical History - Social History Frequency of alcohol use: None Drug Abuse: None Neurological Medical History: Reports: Hx Cerebrovascular Accident Endocrine Medical History: Reports: Hx Hypothyroidism Renal/ Medical History: Reports: Hx Kidney Stones. Denies: Hx Peritoneal Dialysis Psychiatric Medical History: Reports: Hx Anxiety, Hx Depression Past Surgical History: Reports: Hx Tonsillectomy, Hx Vascular Surgery - port a cath, Other - Port-A-Cath - Immunizations Hx Diphtheria, Pertussis, Tetanus Vaccination: Yes Physical Exam - HEENT Neck: Other - Thyroid goiter palpable on right side of thyroid - Respiratory Respiratory status: No respiratory distress Breath sounds: Normal Course - Re-evaluation Re-evalutation: I have greeted and performed a rapid initial assessment of this patient. A comprehensive ED assessment and evaluation of the patient, analysis of test results and completion of medical decision making process will be conducted by an additional ED providers. Doctor's Discharge - Discharge Referrals: AMARJIT LESLIE MD [Primary Care Provider] - Follow up as needed
--- NOTE | 2020-04-21 08:19 | RADIOLOGY REPORT (SQ) ---
EXAM DESCRIPTION: CHEST SINGLE VIEW IMAGES COMPLETED DATE/TIME: 04/21/2020 8:12 am REASON FOR STUDY: shortness of breath COMPARISON: None. EXAM PARAMETERS: NUMBER OF VIEWS: One view. TECHNIQUE: Single frontal radiographic view of the chest acquired. RADIATION DOSE: NA LIMITATIONS: None. FINDINGS: LUNGS AND PLEURA: No opacities, masses or pneumothorax. No pleural effusion. MEDIASTINUM AND HILAR STRUCTURES: No masses. Contour normal. HEART AND VASCULAR STRUCTURES: Heart normal in size. Normal vasculature. BONES: No acute findings. HARDWARE: None in the chest. OTHER: No other significant finding. IMPRESSION: NO ACUTE RADIOGRAPHIC FINDING IN THE CHEST. TECHNICAL DOCUMENTATION: JOB ID: [id number] 2010 [employer]- All Rights Reserved Reading location - IP/workstation name: [email or web address]
--- NOTE | 2020-04-21 10:48 | RADIOLOGY REPORT (SQ) ---
EXAM DESCRIPTION: U/S THYROID/SFT TISS HD NECK IMAGES COMPLETED DATE/TIME: 04/21/2020 10:30 am REASON FOR STUDY: goiter COMPARISON: None. TECHNIQUE: Dynamic and static price-scale images acquired of the thyroid gland. Selected additional c olor/power Doppler images recorded. All images stored to PACS. LIMITATIONS: None. FINDINGS: RIGHT LOBE: Normal size. Heterogeneous echotexture. Large heterogenous solid and cystic nodules. At least 2 nodules which measure 2.1 cm and 3.1 cm. LEFT LOBE: Normal size. Heterogeneous echotexture. No cystic or solid masses. ISTHMUS: Normal size. Heterogeneous echotexture. No cystic or solid masses. OTHER: No other significant finding. IMPRESSION: LARGE HETEROGENOUS SOLID AND CYSTIC NODULES. THE PATIENT REPORTEDLY HAS A KNOWN HISTORY OF GOITER WITH PRIOR ULTRASOUNDS AT ANOTHER FACILITY. CANNOT MAKE ANY FURTHER ASSESSMENT WITHOUT CO MPARISON WITH PRIOR STUDIES. PRIOR STUDIES MOST BE OBTAINED TO DETERMINE IF THERE IS ANY SIGNIFICANT FINDING. TECHNICAL DOCUMENTATION: JOB ID: [id number] 2010 [employer]- All Rights Reserved Reading location - IP/workstation name: [email or web address]
[2020-04-21 11:29] LABS: ABSOLUTE BASOPHILS # (AUTO) 0.1 10^3/uL (0.0-0.2); ABSOLUTE EOSINOPHILS # (AUTO) 0.2 10^3/uL (0.0-0.6); ABSOLUTE LYMPHOCYTES (AUTO) 1.6 10^3/uL (0.5-4.7); ABSOLUTE MONOCYTES (AUTO) 0.4 10^3/uL (0.1-1.4); ABSOLUTE NEUT (AUTO) 5.1 10^3/uL (1.7-8.2); EOSINOPHILS % (AUTO) 2.3 % (0-6); HEMATOCRIT 38.6 % (37.9-51.0); HEMOGLOBIN 13.9 g/dL (13.5-17.0); MEAN CORPUSCULAR HEMOGLOBIN 29.7 pg (27.0-33.4); MEAN CORPUSCULAR HGB CONC 35.9 g/dL (32.0-36.0); MEAN CORPUSCULAR VOLUME 83 fl (80-97); MONOCYTES % (AUTO) 5.4 % (3-13); PLATELET COUNT 191 10^3/uL (150-450); RED BLOOD COUNT 4.67 10^6/uL (4.35-5.55); RED CELL DISTRIBUTION WIDTH 13.1 % (11.5-14.0); SEGMENTED NEUTROPHILS % (AUTO) 69.3 % (42-78); TOTAL CELLS COUNTED % (AUTO) 100 %; WHITE BLOOD COUNT 7.3 10^3/uL (4.0-10.5)
[2020-04-21 11:33] LABS: INTERNATIONAL RATION (INR) 1.01; PROTHROMBIN TIME 13.5 SEC (11.4-15.4)
[2020-04-21 11:34] LABS: PARTIAL THROMBOPLASTIN TIME 35.4 SEC (23.5-35.8)
[2020-04-21 11:50] LABS: ALBUMIN 4.2 g/dL (3.5-5.0); ALKALINE PHOSPHATASE 73 U/L (38-126); ANION GAP 8 (5-19); ASPARTATE AMINO TRANSFERASE 23 U/L (17-59); BILIRUBIN,TOTAL 0.5 mg/dL (0.2-1.3); BLOOD UREA NITROGEN 13 mg/dL (7-20); CALCIUM 9.2 mg/dL (8.4-10.2); CARBON DIOXIDE 29 mmol/L (22-30); CHLORIDE 103 mmol/L (98-107); GLUCOSE 92 mg/dL (75-110); POTASSIUM 3.7 mmol/L (3.6-5.0); TOTAL PROTEIN 6.9 g/dL (6.3-8.2)
--- NOTE | 2020-04-21 14:22 | ER Document Report ---
ED General - General Chief Complaint: Breathing Difficulty Stated Complaint: SHORTNESS OF BREATH Time Seen by Provider: 04/21/20 07:46 Primary Care Provider: AMARJIT LESLIE MD [Primary Care Provider] - Follow up as needed Mode of Arrival: Ambulatory Information source: Patient TRAVEL OUTSIDE OF THE [place] IN LAST 30 DAYS: No - HPI Notes: Patient arrives complaining of feeling short of breath. He states he has a history of a thyroid nodule with possible thyroid cancer. He states he is due to have surgery on this this month. However he states he is concerned now that it may be growing and pushing on his airway. Patient does admit to having trouble with anxiety. His shortness of breath has been intermittent. Nothing has made it better or worse. It is been mild to moderate in intensity. - Related Data Allergies/Adverse Reactions: erythromycin base Allergy (Verified 04/21/20 05:20) Home Medications: THYROID. HTN Past Medical History - General Information source: Patient - Social History Smoking Status: Former Smoker Frequency of alcohol use: None Drug Abuse: None Family History: Reviewed & Not Pertinent Neurological Medical History: Reports: Hx Cerebrovascular Accident Endocrine Medical History: Reports: Hx Hypothyroidism Renal/ Medical History: Reports: Hx Kidney Stones. Denies: Hx Peritoneal Dialysis Psychiatric Medical History: Reports: Hx Anxiety, Hx Depression Past Surgical History: Reports: Hx Tonsillectomy, Hx Vascular Surgery - port a cath, Other - Port-A-Cath - Immunizations Hx Diphtheria, Pertussis, Tetanus Vaccination: Yes Review of Systems - Review of Systems Constitutional: denies: Chills, Fever Cardiovascular: denies: Chest pain, Palpitations Respiratory: Short of breath. denies: Cough -: Yes All other systems reviewed and negative Physical Exam - Vital signs Vitals: Resp Pulse Ox 18 98 04/21/20 08:24 04/21/20 08:24 Interpretation: Normal - General General appearance: Appears well, Alert - HEENT Head: Normocephalic, Atraumatic Eyes: Normal Pupils: PERRL Neck: Thyromegally - Respiratory Respiratory status: No respiratory distress Chest status: Nontender Breath sounds: Normal Chest palpation: Normal - Cardiovascular Rhythm: Regular Heart sounds: Normal auscultation Murmur: No - Abdominal Inspection: Normal Distension: No distension Bowel sounds: Normal Tenderness: Nontender Organomegaly: No organomegaly - Back Back: Normal, Nontender - Extremities General upper extremity: Normal inspection, Nontender, Normal color, Normal ROM, Normal temperature General lower extremity: Normal inspection, Nontender, Normal color, Normal ROM, Normal temperature, Normal weight bearing. No: Ari's sign - Neurological Neuro grossly intact: Yes Cognition: Normal Orientation: AAOx4 [place] Coma Scale Eye Opening: Spontaneous [place] Coma Scale Verbal: Oriented [place] Coma Scale Motor: Obeys Commands [place] Coma Scale Total: 15 Speech: Normal Motor strength normal: LUE, RUE, LLE, RLE Sensory: Normal - Psychological Associated symptoms: Normal affect, Normal mood - Skin Skin Temperature: Warm Skin Moisture: Dry Skin Color: Normal Course - Re-evaluation Re-evalutation: 04/21/20 14:23 Patient complains of feeling that his thyroid is enlarging and pushing on his airway. However patient is lying comfortably on his right side without any respiratory distress. He states his sensation does seem to come and go. Lungs are clear are on auscultation. Vital signs are stable. He is saturating 100% on room air. We repeated a thyroid ultrasound shows no significant enlargement compared to previous ultrasound. - Vital Signs Vital signs: Temp Pulse Resp BP Pulse Ox 10 L 145/97 H 99 04/21/20 08:25 04/21/20 08:25 04/21/20 08:25 - Laboratory Result Diagrams: 04/21/20 11:08 04/21/20 11:08 Laboratory results interpreted by me: 04/21/20 11:08 TSH 9.89 H - Diagnostic Test Radiology reviewed: Image reviewed, Reports reviewed Discharge - Discharge Clinical Impression: Anxiety Condition: Stable Disposition: HOME, SELF-CARE Instructions: Anxiety ([facility]) Additional Instructions: Please follow-up with Dr. Barboza as scheduled Prescriptions: Lorazepam [Ativan 0.5 mg Tablet] 0.5 mg PO BID PRN 15 Days #30 tab PRN Reason: Forms: Return to Work Referrals: CHARLY BARBOZA MD [ACTIVE STAFF] - Follow up as needed
[2020-04-21 15:29] VITALS: BP 117/79
== END 2020-04-21 15:29 | disposition home or self-care (01) ==
LOC: ER 05:05
DX: F41.9 Anxiety disorder, unspecified (principal); E04.2 Nontoxic multinodular goiter; R06.02 Shortness of breath; I10 Essential (primary) hypertension; Z79.899 Other long term (current) drug therapy; Z87.891 Personal history of nicotine dependence
CPT/HCPCS: 36415; 71045; 76536; 80053; 84443; 85025; 85610; 85730; 99285

== ENCOUNTER 2020-05-07 05:19 | Day surgery (SDC) | payer OTHER ==
[2020-05-04 10:22] LABS: HEMATOCRIT 41.6 % (37.9-51.0); HEMOGLOBIN 14.8 g/dL (13.5-17.0); MEAN CORPUSCULAR HEMOGLOBIN 29.6 pg (27.0-33.4); MEAN CORPUSCULAR HGB CONC 35.6 g/dL (32.0-36.0); MEAN CORPUSCULAR VOLUME 83 fl (80-97); PLATELET COUNT 234 10^3/uL (150-450); RED CELL DISTRIBUTION WIDTH 13.3 % (11.5-14.0); WHITE BLOOD COUNT 8.9 10^3/uL (4.0-10.5)
[2020-05-04 10:48] LABS: ANION GAP 9 (5-19); BLOOD UREA NITROGEN 13 mg/dL (7-20); CALCIUM 9.3 mg/dL (8.4-10.2); CARBON DIOXIDE 29 mmol/L (22-30); CHLORIDE 101 mmol/L (98-107); GLUCOSE 92 mg/dL (75-110)
--- NOTE | 2020-05-04 15:50 | EKG REPORT ---
SEVERITY:- ABNORMAL ECG - SINUS RHYTHM PROBABLE LEFT ATRIAL ABNORMALITY LEFT VENTRICULAR HYPERTROPHY : Confirmed by: Juani Luther MD 04-May-2020 15:49:37
[~2020-05-07 05:19] MED LIST: CEFAZOLIN 2 GM/D5W RTU 2 GM/50 ML RTUPB IV ONE; CEFAZOLIN 2 GM/D5W RTU 2 GM/50 ML RTUPB IV PRN; LACTATED RINGERS 1000 ML IV PRN
[2020-05-07] MEDS ORDERED: HYDROMORPHONE HCL INJ/PF 2 MG/ML AMPULE ONE (06:47)
[2020-05-07] MEDS ORDERED: PROPOFOL INJ 200 MG/20 ML VIAL IV ONE (06:48)
[2020-05-07] MEDS ORDERED: MIDAZOLAM 2 MG/2 ML INJ ONE (06:48)
[2020-05-07] MEDS ORDERED: DEXAMETHASONE SOD PHOSPHATE INJ 4 MG/1 ML VIAL ONE ×2 (06:48→15:46)
[2020-05-07] MEDS ORDERED: LIDOCAINE 2% INJ (20 MG/ML) 20 ML MDV ONE (06:50)
[2020-05-07] MEDS ORDERED: DIPHENHYDRAMINE HCL 50 MG/ML VIAL IV PRN (08:04)
[2020-05-07] MEDS ORDERED: MEPERIDINE HCL/PF INJ 25 MG/1 ML DISP.SYRIN IV PRN (08:04)
[2020-05-07] MEDS ORDERED: MORPHINE SULFATE 10 MG/ML INJ IV PRN ×2 (08:04→09:31)
[2020-05-07] MEDS ORDERED: PROMETHAZINE HCL INJ 25 MG/1 ML VIAL IV PRN (08:04)
[2020-05-07] MEDS ORDERED: ONDANSETRON HCL INJ/PF 4 MG/2 ML SDV IV PRN ×2 (08:04→09:31)
[2020-05-07] MEDS ORDERED: FENTANYL CITRATE INJ/PF 100 MCG/2 ML AMPUL IV PRN ×3 (08:04)
--- NOTE | 2020-05-07 09:31 | Operative Report ---
Nonrecallable Operative Report DATE OF SURGERY: 05/07/20 PREOPERATIVE DIAGNOSIS: Thyroid mass POSTOPERATIVE DIAGNOSIS: Same OPERATION: Total thyroidectomy SURGEON: CHARLY BARBOZA [employer] RE[employer]ENTATIVE: CODY MCQUEEN ANESTHESIA: GA TISSUE REMOVED OR ALTERED: Thyroid gland COMPLICATIONS: None ESTIMATED BLOOD LOSS: 50 cc INTRAOPERATIVE FINDINGS: See note PROCEDURE: Procedure note patient was brought to the operating awake alert stable condition placed on the operative table supine position induced under general anesthesia intubated. A curvilinear incision was made above the sternal notch dissection was carried out through subcutaneous tissue with the knife the platysma muscle was divided with the 15 blade. Superior and inferior flaps were raised with Bovie cautery. Thyroid retractor was placed Midline raphae was divided with Bovie cautery. We turned attention first to the right side with a large thyroid mass in the mid upper pole. The thyroid was dissected away from the strap muscles and a green retractor was used to retract the strap muscles laterally. With blunt dissection we mobilized the thyroid from lateral to medial. Identified the recurrent laryngeal nerve as it exited the thoracic inlet and traced it to the tracheoesophageal groove and then to the cricopharyngeus muscle. The inferior parathyroid gland came into view at the intersection between the nerve and the inferior thyroidal artery. That was preserved. We continued our dissection cephalad until I identified the nerve entering the cricopharyngeus muscle. I then divided the superior thyroidal artery umbilicus the mass in the superior pole dissecting it medially. At this point we identified the superior parathyroid gland and left that in situ. We continue to mobilize mass to we reached Betancourt's ligament which was divided sharply with a 15 blade being careful not to injure the recurrent laryngeal nerve as it passed just posterior to this. Once we reached the isthmus we then turned attention to the left side.. Similarly the thyroid was dissected out of its bed with blunt dissection retracting the strap muscles laterally with a green retractor. Identified the recurrent laryngeal nerve as it exited the chest and traced it to the cricopharyngeus muscle. Also the inferior parathyroid gland was identified on the left side as we continue to dissection we mobilized the superior pole and came around the superior thyroidal artery with 0 silk ties. Divided that and mobilized the superior pole medially identifying the superior parathyroid gland again traced the recurrent laryngeal nerve past the Betancourt's ligament into the cricopharyngeus muscle and then divide Betancourt's ligament sharply we mobilized the thyroid off the trachea. Hemostasis was obtained with digital pressure Surgicel and hemoclips. Once we had good hemostasis we reapproximated the midline raphae with interrupted 3-0 Vicryl sutures. We then reclosed the platysma muscle similarly and closed the subcutaneous muscle similarly. Skin was closed with intracuticular 4-0 Biosyn Steri-Strips completed the procedure estimated blood loss was less than 50 cc sponge and needle counts correct x2 patient was awakened in the operating extubated transferred recovery in stable condition. SABIHA Raymond was present for the entire procedure help with dissection wound retraction wound closure.
[2020-05-07] MEDS ORDERED: OXYCODONE-ACETAMINOPHEN 5-325 MG TABLET ONE ×2 (10:03→14:10)
[2020-05-07] MEDS: OXYCODONE-ACETAMINOPHEN 5-325 MG TABLET PO PRN (14:13)
[2020-05-07] MEDS: CALCIUM CARBONATE 600 MG TABLET PO SCH ×2 (14:15→22:37)
[2020-05-07] MEDS ORDERED: ONDANSETRON HCL INJ/PF 4 MG/2 ML SDV ONE (15:46)
[2020-05-07] MEDS ORDERED: GLYCOPYRROLATE 1 MG/5 ML VIAL ONE (15:46)
[2020-05-07] MEDS ORDERED: PHENYLEPHRINE HCL INJ/PF 10 MG/1 ML SDV ONE (15:46)
[2020-05-07] MEDS ORDERED: SUCCINYLCHOLINE CHLORIDE INJ 200 MG/10 ML VIAL ONE (15:46)
[2020-05-07] MEDS ORDERED: ROCURONIUM BROMIDE INJ 50 MG/5 ML VIAL IV ONE (15:46)
[2020-05-07] MEDS: FAMOTIDINE INJ/PF 20 MG/2 ML SDV IV SCH ×2 (16:05→22:37)
[2020-05-07] MEDS: POTASSI CL 20 MEQ/1/2NS 1L 20 MEQ/1,000 ML RTUINJ IV PRN (16:06)
[2020-05-08] MEDS: OXYCODONE-ACETAMINOPHEN 5-325 MG TABLET PO PRN (01:51)
[2020-05-08] MEDS: POTASSI CL 20 MEQ/1/2NS 1L 20 MEQ/1,000 ML RTUINJ IV PRN (01:52)
[2020-05-08] MEDS: CALCIUM CARBONATE 600 MG TABLET PO SCH (06:20)
--- NOTE | 2020-05-08 09:14 | Discharge Summary ---
Discharge Summary (SDC) - Discharge Final Diagnosis: thyroid mass Date of Surgery: 05/07/20 Discharge Date: 05/08/20 Condition: Good Prescriptions: Hydrocodone/Acetaminophen [[place] 10-325 Tablet] 1 each PO Q6HP PRN #15 tablet PRN Reason: Calcium Carbonate/Vitamin D3 [Os-Minh 500+D3 Caplet] 1 each PO TID #60 tablet Levothyroxine Sodium [Synthroid 0.1 mg Tablet] 0.1 mg PO DAILY #100 tablet Referrals: LILLIAN ROBERTS FNP-C [Primary Care Provider] - Discharge Diet: As Tolerated Discharge Activity: Activity As Tolerated, No Lifting Over 10 Pounds Report the Following to Your Physician Immediately: Shortness of Breath, Nausea, Vomiting, Increase in Pain
[2020-05-08] MEDS: FAMOTIDINE INJ/PF 20 MG/2 ML SDV IV SCH (09:35)
[2020-05-08 09:37] VITALS: BP 120/85
== END 2020-05-08 10:54 | disposition home or self-care (01) ==
LOC: OROUT 05:19 → 5 15:57 → OROUT 05-08 10:54
PROVIDERS: ATTEND Surgery
DX: E04.2 Nontoxic multinodular goiter (principal); Z20.828 Contact with and (suspected) exposure to other viral communicable diseases; Z85.71 Personal history of Hodgkin lymphoma; I10 Essential (primary) hypertension; I69.351 Hemiplegia and hemiparesis following cerebral infarction affecting right dominant side; Z92.3 Personal history of irradiation; Z87.891 Personal history of nicotine dependence; Z79.82 Long term (current) use of aspirin; Z79.899 Other long term (current) drug therapy
CPT/HCPCS: 60240; 93005; 86900; 86901; 36415 ×2; 86850; 82310; 85027; 87635; 80048; 88305 ×2; 88307 ×2; 94799; 93010; J2250; J3490 ×5; J1100; J3480 ×2; J1170; J2370; J0330; J2405; J2704; S0028; J0690; C9803; 320